=== PATIENT | female | born 1955 | race Caucasian/White ===

== ENCOUNTER 2022-04-07 12:26 | Outpatient (CLI) | payer MEDICARE, OTHER, SELFPAY | END 2022-04-07 12:27 | disposition home or self-care (01) | LOC: OP CLINIC 12:27 | PROVIDERS: PCP Internal Medicine; Visit Provider Internal Medicine | DX: R19.8 Other specified symptoms and signs involving the digestive system and abdomen (principal); K29.70 Gastritis, unspecified, without bleeding; K25.9 Gastric ulcer, unspecified as acute or chronic, without hemorrhage or perforation | CPT/HCPCS: 43239; 88305; 88342; J2250; J3010 ==

== ENCOUNTER 2022-07-18 14:49 | Outpatient (CLI) | payer MEDICARE, OTHER, SELFPAY ==
--- OUTSIDE RECORDS SUMMARY | 2022-07-18 14:59 | XMS_ITS | Clinical Summary ---
:1955 Author Organization [facility] [place] [address] Care Team Providers Name Role Phone Manuel Briceno MD Primary Care Provider Allergies Active Allergy Reactions Severity Noted Date Comments Nickel Other - Describe In 04/22/2020 Nickel u sed in surgery Comment Field caused increas ed pain Medications Medication Sig Dispensed Refills Start Date End Date Status CLARITIN 10 MG TAB take 1 tablet 0 01/14/2007 Active (10mg) by oral route once daily cholecalciferol (VITAMIN Take 1,000 0 Active D3) 1,000 unit capsule Units by mouth. LORazepam (ATIVAN) 0.5 0 12/25/2019 Active mg tab triamcinolone 0.1% 0 10/27/2019 Active (KENALOG IN ORABASE) 0.1 % paste chlorthalidone Twice A Day 0 Act chantal (HYGROTON) 25 mg tablet omeprazole (PRILOSEC) 40 Twice A Day 0 Active mg Delayed-Release capsule polyethylene glycoL Take 17 g by 0 04/22/2020 Active (MIRALAX) 17 gram/dose mouth. powder calcium-vitamin Take by mouth. 0 04/22/2020 Active D3-vitamin K 500 mg-1,000 unit-40 mcg chew tamsulosin (FLOMAX) 0.4 TAKE ONE 90 Capsule 0 05/30/2022 Active mg capsuleIndications: CAPSULE BY Kidney stones MOUTH ONCE DAILY AFTER A MEAL Active Problems Problem Noted Date Chronic rhinitis Hypopotassemia Esophageal reflux Dizziness and giddiness Encounters Date Type Specialty Care Team Description 05/26/2022 Refill Vincenzo Guallpa MD Refi ll Request (Tamsulosin) from Last 3 Months Immunizations Name Administration Dates Next Due Influenza, IIV3 (Age >=3 years) 08/08/2006 Td (Age >=7 Years) 03/31/2005 Family History Medical History Relation Name Comments Alcohol/Drug Brother 3 Alcohol/Drug Brother 4 Hypertension Brother 5 Hypertension Brother 6 Hypertension Brother 7 Heart Disease Father Hypertension Father Hypertension Mother Osteoporosis Mother Cancer-breast Sister 2 Relation Name Status Comments Brother 1 Alive 3 Brother 2 Brother 3 Brother 4 Brother 5 Brother 6 Brother 7 Daughter Alive Father Maternal Grandfather Maternal Grandmother Mother Alive Paternal Grandfather Paternal Grandmother Sister 1 Alive 1 Sister 2 Son Alive Social History Tobacco Use Types Packs/Day Years Used Date Never Smoker Smokeless Tobacco: Never Used Tobacco Cessation: Counseling Given: Yes Alcohol Use Standard Drinks/Week Comments No 0 (1 standard drink = 0.6 oz pure alcoho l) Sex Assigned at Date Recorded Not on file Obstetrics History Para Term AB IAB SAB Ectopic Multiple Living Live Births 4 2 2 2 2 Date Outcome GA Total Labor/2nd/3rd Weight Sex Delivery Anes PTL Arminda A 1 A5 Name Clin Labor Term Term 08/20 38w 3.01 kg F Vag Celia /1988 0d (6 lb ng 10 oz) 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 38w0d 3.23 kg (7 lb 2 oz) M Vag Living Last Filed Vital Signs Vital Sign Reading Time Taken Comments Blood Pressure 103/70 09/12/2021 9:07 AM ICE GUARD INSPECTOR Pulse 74 09/12/2021 9:07 AM ICE GUARD INSPECTOR Temperature 36.7 ??C (98.1 ??F) 09/15/2020 3:28 PM ICE GUARD INSPECTOR Respiratory Rate 16 09/12/2021 9:07 AM ICE GUARD INSPECTOR Oxygen Saturation 96% 09/12/2021 9:07 AM ICE GUARD INSPECTOR Inhaled Oxygen Concentration - - Weight 68 kg (150 lb) 09/12/2021 9:07 AM ICE GUARD INSPECTOR Height 160.4 cm (5' 3.15) 09/15/2020 3:28 PM ICE GUARD INSPECTOR Body Mass Index 26.45 09/15/2020 3:28 PM ICE GUARD INSPECTOR Plan of Treatment Upcoming Encounters Date Type Specialty Care Team Description 09/07/2022 Ancillary Procedure Health Maintenance Due Date Last Done Comments Tdap 1967 Depression screening for age 12+ 1968 Hepatitis C screening for age 1108/14/1974 18-79 Colonoscopy through age 75 2001 Zoster (shingles) series for age 1108/14/2006 50+ (1 of 2) Mammogram for age 45-75 02/23/2011 02/23/2010, 02/17/2009, 02/12/2008, Additional history exists Lipids for age 45-75 02/08/2012 02/07/2007, 01/24/2007 Tetanus booster 03/31/2015 03/31/2005 DEXA/DXA scan for age 65+ 2021 Medicare Wellness for age 65+ 2021 Pneumococcal series for age 65+ (1 2021 - PCV) BMI (ht and wt on same day) for 09/15/2021 09/15/2020, 05/09, age 18+ 05/10/2020, Additional history exists COVID-19 vaccine series (3 - 02/03/2022 09/05/2021, 021 Booster for Moderna series) Influenza for age 65+ 06/08/2022 08/08/2006 Pap test for age 21-65 07/04/2024 07/04/2021, 02/23/2010, 02/17/2009, Additional history exists Results Not on filefrom Last 3 Months Insurance Payer Benefit Plan / Subscriber ID Effective Dates Phone Addre ss Type Group MEDICARE PART A MEDICARE PART A [id number] 2021-Presen ATTN: CLAIMS - HB USE ONLY HB ONLY t [address] [facility] [place] [address] MEDICARE PART B MEDICARE PART B [id number] 2021-Presen ATTN: CLAIMS - HB USE ONLY HB ONLY t [address] [facility] [place] [address] MEDICARE - PB MEDICARE PB [id number] 2021-Presen ATT N: CLAIMS USE ONLY ONLY t [address] [facility] [place] [address] FOR [id number] 2021-Present [address] [place] [address] (Home) [place] [address] Advance Directives Latest Code Status on File Code Status Date Activated Date Inactivated Comments Full Code 03/06/2007 11:49 AM 03/07/2007 2:08 AM Care Teams Patient Financial Representative Relationship Specialty Start Date End Date Manuel Briceno MD PCP - General 12/07/09
--- OUTSIDE RECORDS SUMMARY | 2022-07-18 14:59 | XMS_ITS ---
:1955 Author Allergies Code Code System Name Reaction Severity Status Onset Hayfever ? ? Active ? Ragweed ? ? Active ? Medications None recorded. Problems None recorded. Procedures Date Name Performed by ? 11/08/2014 Parathyroidectomy Information not avai lable Notes: *Surgery Date: 11/08/2014 ? Removal of Gallbladder Information not a vailable ? Laparoscopy Information not avai lable ? Laparotomy Information not avai lable Notes: *Surgery Date: 1983 ? Operative Procedure on Forearm Informati on not available Notes: *Surgery Date: , ? Tonsillectomy Information not avai lable Notes: *Surgery Date: 06/01/2020 US, Pelvis, Transabdominal + Transvagina l [employer] [place] [phone] ([address]) 06/01/2020 US, Pelvis, Transabdominal + Transvagina l [employer] [place] [phone] (Work [address]) Notes: *Procedure Name: arm fracture *Procedure Name: Leg fracture Results Lab Results None recorded. Past Encounters None recorded. Social History Tobacco Smoking Status Never Smoker Notes: Tobacco *Status: Never Vaccine List None recorded. Plan of Care Reminders Provider Appointments None recorded. ? ? Lab None recorded. ? ? Referral None recorded. ? ? Procedures None recorded. ? ? Surgeries None recorded. ? ? Imaging None recorded. ? ? Vitals 04/03/2019 Height Weight BMI Blood Pressure 5 ft 3.96 in 144 lbs 24.72 kg/m2 118/78 mm[Hg] 04/01/2018 Height Weight BMI Blood Pressure 5 ft 3.96 in 181 lbs 31.07 kg/m2 104/72 mm[Hg] 03/29/2017 Height Weight BMI Blood Pressure 5 ft 3.96 in 178 lbs 30.55 kg/m2 96/70 mm[Hg] 06/19/2016 Height Weight BMI Blood Pressure 5 ft 3.96 in 180 lbs 30.90 kg/m2 94/70 mm[Hg] 05/29/2016 Height Weight BMI Blood Pressure 5 ft 3.96 in 178 lbs 30.55 kg/m2 104/82 mm[Hg] 05/27/2015 Height Weight BMI Blood Pressure 5 ft 3.96 in 172 lbs 29.52 kg/m2 118/72 mm[Hg] 05/21/2014 Height Weight BMI Blood Pressure 5 ft 3.96 in 189 lbs 32.44 kg/m2 118/72 mm[Hg] 06/19/2013 Weight Blood Pressure 180 lbs 122/70 mm[Hg] 05/22/2013 Height Weight BMI Blood Pressure 5 ft 5.04 in 180 lbs 29.95 kg/m2 116/70 mm[Hg] 04/24/2013 Height Weight BMI Blood Pressure 5 ft 5.04 in 181 lbs 30.12 kg/m2 122/72 mm[Hg] 05/16/2012 Height Weight BMI Blood Pressure 5 ft 5.04 in 179 lbs 29.79 kg/m2 100/80 mm[Hg] 04/22/2012 Height Weight BMI Blood Pressure 5 ft 5.04 in 183 lbs 30.45 kg/m2 122/74 mm[Hg] 03/23/2011 Height Weight BMI Blood Pressure 5 ft 5.04 in 177.31 lbs 29.51 kg/m2 122/76 mm[Hg] 03/31/2010 Height Weight BMI Blood Pressure 5 ft 5.04 in 173 lbs 28.79 kg/m2 94/68 mm[Hg] 03/24/2010 Height Weight BMI Blood Pressure 5 ft 5.04 in 172 lbs 28.62 kg/m2 110/80 mm[Hg]
--- NOTE | 2022-07-18 15:00 | CRLHL7_ITS ---
For Patients: As a result of the Cures Act, medical imaging exams and procedure reports are released immediately into your electronic medical record. You may view this report before your referring provider. If you have questions, please contact your health care provider. BILATERAL SCREENING MAMMOGRAM WITH COMPUTER-AIDED DETECTION AND TOMOSYNTHESIS TECHNIQUE: CC and MLO views were obtained. These mammographic images have been obtained using full-field digital technique. These mammographic images were interpreted with the benefit of computer-aided detection. Breast Tomosynthesis was used in this interpretation. COMPARISON FILM: 07/05/21, 07/02/20, 07/01/19. FINDINGS: There are scattered areas of fibroglandular density IMPRESSION: There is no radiographic evidence for malignancy. ASSESSMENT: BI-RADS Category 1: Negative RECOMMENDATION: Routine screening mammogram in 1 year. A lay language report of this examination will be provided to the patient. Zhou Lauren M.D. Diagnostic Radiologist [email or web address] JAMARI/canelo / be/Dictated by: Zhou Lauren MD @ 07/19/2022 11:53:00 AM (Electronically Signed)
== END 2022-07-18 14:50 | disposition home or self-care (01) ==
PROVIDERS: PCP Internal Medicine; Visit Provider Internal Medicine
DX: Z12.31 Encounter for screening mammogram for malignant neoplasm of breast (principal)
CPT/HCPCS: 77063; 77067

== ENCOUNTER 2022-07-27 13:08 | Outpatient (CLI) | payer MEDICARE, OTHER, SELFPAY ==
[2022-07-27 17:15] LABS: Albumin* 4.3 g/dL (3.3-5.0)
[2022-07-27 17:16] LABS: Chloride* 102 mmol/L (96-114); Potassium* 3.9 mmol/L (3.6-5.1); Sodium* 137 mmol/L (135-149)
[2022-07-27 17:18] LABS: Blood Urea Nitrogen* 22 mg/dL (7-30); Carbon Dioxide* 28 mmol/L (20-32); Cholesterol* 212 mg/dL (90-199); Creatinine* 0.6 mg/dL (0.5-1.5); Estimated Glomerular Filt Rate 100 ml/min; Total Protein* 6.6 g/dL (6.0-8.3)
[2022-07-27 17:19] LABS: Alanine Aminotransferase* 24 U/L (4-35); Alkaline Phosphatase* 65 U/L (40-150); Aspartate Amino Transferase* 38 U/L (12-35); Calcium* 9.8 mg/dL (8.4-10.6); Glucose* 95 mg/dL (60-115); Triglycerides* 88 mg/dL (40-149)
[2022-07-27 17:20] LABS: HDL Cholesterol* 81 mg/dL (>=50); LDL Cholesterol Calculated 113 mg/dL (<100)
== END 2022-07-27 13:09 | disposition home or self-care (01) ==
PROVIDERS: PCP Internal Medicine; Visit Provider Internal Medicine
DX: Z01.419 Encounter for gynecological examination (general) (routine) without abnormal findings (principal); E21.3 Hyperparathyroidism, unspecified; E83.51 Hypocalcemia; E87.6 Hypokalemia; F41.9 Anxiety disorder, unspecified; Z13.6 Encounter for screening for cardiovascular disorders
CPT/HCPCS: 80053; 80061

== ENCOUNTER 2022-09-22 15:51 | Outpatient (CLI) | payer MEDICARE, OTHER, SELFPAY ==
--- NOTE | 2022-09-22 16:00 | CRLHL7_ITS ---
For Patients: As a result of the Century Cures Act, medical imaging exams and procedure reports are released immediately into your electronic medical record. You may view this report before your referring provider. If you have questions, please contact your health care provider. INDICATION: Left ovarian cyst on outside CT scan TECHNIQUE: Ultrasound pelvis transabdominal and transvaginal for better assessment or to better visualize the endometrium. Real time sonographic images with Spectral and color Doppler imaging of the ovaries were obtained. COMPARISON: None FINDINGS: Uterus: 0.9 centimeter x 1.5 centimeter x 3.6 centimeter. Normal echotexture of the myometrium. No masses. Endometrium: Transvaginal imaging was performed to better evaluate the endometrium. 2.1 millimeter in thickness. There is fluid in the endometrial canal. Right ovary: Not visualized. Left ovary: 4.3 centimeter x 3.0 centimeter x 3.2 centimeter. No ovarian or adnexal masses. 3.4 centimeter left ovarian cyst normal arterial and venous blood flow. Cul-de-sac: No significant free fluid. IMPRESSION: 3.4 centimeter left ovarian cyst. Trace fluid in the endometrial canal. Dictated by Zhou Winn MD @ 09/22/2022 4:49:05 PM (Electronically Signed)
== END 2022-09-22 15:52 | disposition home or self-care (01) ==
LOC: US 15:53
PROVIDERS: PCP Internal Medicine; Visit Provider Obstetrics & Gynecology
DX: N83.202 Unspecified ovarian cyst, left side (principal)
CPT/HCPCS: 76830; 76856

== ENCOUNTER 2022-09-25 13:52 | Outpatient (CLI) | payer MEDICARE, OTHER, SELFPAY ==
[2022-09-28 19:03] LABS: Cancer Antigen 125 17 U/mL (<=38)
== END 2022-09-25 13:53 | disposition home or self-care (01) ==
LOC: NFLDREF 13:59
PROVIDERS: PCP Internal Medicine; Visit Provider Obstetrics & Gynecology
DX: D48.9 Neoplasm of uncertain behavior, unspecified (principal); N83.209 Unspecified ovarian cyst, unspecified side; Z78.0 Asymptomatic menopausal state
CPT/HCPCS: 86304

== ENCOUNTER 2023-03-21 11:07 | Outpatient (CLI) | payer MEDICARE, OTHER, SELFPAY ==
--- NOTE | 2023-03-21 11:00 | CRLHL7_ITS ---
For Patients: As a result of the Century Cures Act, medical imaging exams and procedure reports are released immediately into your electronic medical record. You may view this report before your referring provider. If you have questions, please contact your health care provider. CLINICAL HISTORY: LT OVARIAN CYST, PAIN TECHNIQUE: 2D davison scale ultrasound. In addition color Doppler and spectral Doppler analysis was performed of the pelvis using a transabdominal and transvaginal approach. Comparison 09/22/2022 FINDINGS: On transvaginal imaging, the myometrium has a normal uniform echotexture. The uterus measures 5.0 x 2.0 x 3.9 cm. The endometrial lining measures 1 mm in thickness. The right ovary measures 1.7 x 0.9 x 1.1 cm in size and the left ovary measures 3.8 x 3.1 x 3.2 cm. A simple anechoic left ovarian cyst is noted measuring 2.6 x 2.3 x 2.4 cm. The ovaries demonstrate normal arterial and venous blood flow on color Doppler and spectral Doppler analysis. There are no suspicious fluid collections within the cul-de-sac. IMPRESSION: 2.6 cm simple left ovarian cyst. Previously this measured 3.4 cm. No torsion or pelvic free fluid. Dictated by Zhou Lauren MD @ 03/21/2023 12:36:29 PM (Electronically Signed)
== END 2023-03-21 11:08 | disposition home or self-care (01) ==
PROVIDERS: PCP Internal Medicine; Visit Provider Obstetrics & Gynecology
DX: N83.292 Other ovarian cyst, left side (principal); R10.2 Pelvic and perineal pain
CPT/HCPCS: 76830; 76856; 93976

== ENCOUNTER 2023-08-28 17:03 | Outpatient (CLI) | payer MEDICARE, OTHER, SELFPAY ==
--- OUTSIDE RECORDS SUMMARY | 2023-08-28 17:05 | XMS_ITS | Continuity of Care Document ---
Author Name Unknown Organization [facility] Address [address] [address] [place] [address] Phone Care Team Providers Care Fruit Or Nut Crops Farm Manager Name Role Phone Unavailable Unavailable Unavailable Allergies, Adverse Reactions, Alerts Substance Reaction Status Criticality nickel Active No Information Medications Medication Instructions Dosage Effective Dates (start - stop) Status Comments omeprazole 40 mg capsule,delayed release take 1 capsule by oral route 2 times every day before a meal 40 MG - Active aspirin 81 mg tablet,delayed release take 1 tablet by oral route every day 81 MG - Active Vitamin D3 1,000 unit capsule take 1 Tablet by Oral route every day 1 Tablet - Active Miralax 17 gram/dose oral powder take (17G) by oral route every day mixed with 8 oz. water, juice, soda, coffee or tea - Active UMANG ALLERGY (unknown strength) take 1 tablet by oral route every day Not Available - Active CALCIUM (unknown strength) take 1 Tablet by Oral route every day Not Available - Active Procedures Procedure Date CRS Charges Advance Directives Directive Yes / No Effective Date File Name No Information Encounters Encounter Description Practice Location Reason(s) For Visit Diagnoses Date Provider Providers Copied on Encounter [facility], [address] [address], [place], [id number], [place] tel:[phone] Miguel A [facility] Screening ColonoscopyEncou nter for screening for malignant neoplasm of colon 7 No Information Referring Provider: Referral Self, USE FOR SELF REFERRALS. Family History Family Member Type Diagnosis Age At Onset Sister Problem (finding) Alive and well Father Problem (finding) Son Problem (finding) Alive and well Brother Problem (finding) alcoholism Daughter Problem (finding) Alive and well Mother Problem (finding) Payers Payer name Insurance type Covered constitution party ID Kelsy hull(s) [employer] CI [id number] Social History Type Description Quantity Date Captured Comments Alcohol Use Details Unknown Caffeine Use Details Unknown Tobacco Use Status No Information Smoking Status Never smoker Sex Female Vital Signs Date / Time: Height Weight BMI Pulse Rate Blood Pressure Temperature Respiratory Rate Body Surface Area Head Circumference Head Circ. Percentile Wt./Solitario. Percentile BMI percentile Pulse Ox Inhaled Ox 65.00 in 76.190 kg (168.00 lbs) 28.0 0 kg/m eter (2) 64 /min 108/76 mm[Hg] 0.00 F 16 /min 98 % Chief Complaint And Reason For Visit No Information Reason For Referral Reason For Referral No Information History Of Present Illness Encounter Date Complaint History Of Prese nt Illness No Information Functional Status Date Functional Assessmen t No Information Instructions Date Instruction Additional Infor dwaine Colon Cancer Prevention Related to Screening Colonoscopy Assessments Type Assessment Date assessment Screening Colonoscopy 7 Patient Care Teams Name Effective Dates (start - stop) Status Members No Information
--- OUTSIDE RECORDS SUMMARY | 2023-08-28 17:05 | XMS_ITS | Continuity of Care Document ---
Author Name Unknown Organization [facility] Address [address] [place] [address] Phone Care Team Providers Care Psychiatric Specialist Name Role Phone Renuka Londono CNP Unavailable Unavailable Allergies, Adverse Reactions, Alerts Substance Reaction Status Criticality No Known Drug Allergies Active No I nformation Medications Medication Instructions Dosage Effective Dates (start - stop) Status Comments omeprazole 40 mg capsule,delayed release take 1 capsule by oral route 2 times every day before a meal 40 MG - Active alendronate 70 mg tablet take 1 tablet by oral route every week in the morning, at least 30 min before first food, beverage, or medication of day 70 MG - Active aspirin 81 mg chewable tablet chew 1 tablet by oral route every day 81 MG - Active Citracal + D Slow Release 600 mg calcium-500 unit tablet,ext.release - Active Vitamin C 500 mg tablet - Active Aarti 180 mg tablet take 1 tablet by oral route every day - No Longer Active Procedures Procedure Date Est Pt Eval 25 Min Est Pt Eval 15 Min Injections Ligament OP Consult 60 Min Advance Directives Directive Yes / No Effective Date File Name No Information Encounters Encounter Description Practice Location Reason(s) For Visit Diagnoses Date Provider Providers Copied on Encounter Est Pt Eval 25 Min [facility], [address], [place], [place], [id number], tel:[phone] [facility] No Information 0-201 4 Bry Grayson. [address], [place], [place], [id number], [place]. tel:[phone] Referring Provider: Alex Angel, [address], [place], [address]. tel:[phone] [facility], [address], [place], [address], [place] tel:[phone] [facility] No Information Jun- 4 Jesus Dumas. [address] [place], [facility], [place], [address]. tel:[phone] Referring Provider: Piter Grossman, [address] [place] [facility], [place], [address]. tel:[phone] [facility], [facility], [address], [place], [place], [id number], [place] tel:[phone] [facility] No Information 4 Jesus Dumas. [address] [place], [facility], [place], [address]. tel:[phone] Referring Provider: Alex Angel, [address], [place], [address]. tel:[phone] OP Consult 60 Min [facility], [facility], [address], [place], [place], [id number], [place] tel:[phone] [facility] No Information 4 Jose Emerson. [address], [place], [place], [id number], [place]. tel:[phone] Referring Provider: Alex Angel, [address], [place], [address]. tel:[phone] Family History Family Member Type Diagnosis Age At Onset No Information Payers Payer name Insurance type Covered republican ID Kelsy hull(s) No Information Social History Type Description Quantity Date Captured Comments Alcohol Use Details No Caffeine Use Details No Tobacco Use Status No Information Smoking Status No Information Sex Female Vital Signs Date / Time: Height Weight BMI Pulse Rate Blood Pressure Temperature Respiratory Rate Body Surface Area Head Circumference Head Circ. Percentile Wt./Solitario. Percentile BMI percentile Pulse Ox Inhaled Ox 3:50 PM 65.00 in 192.00 lbs 31.9 5 kg/m eter (2) 69 /min 119/78 mm[Hg] 15 /min 98 % Chief Complaint And Reason For Visit No Information Reason For Referral Reason For Referral No Information History Of Present Illness Encounter Date Complaint History Of Prese nt Illness No Information Functional Status Date Functional Assessmen t Pain Score 7/10 Instructions Date Instruction Additional Infor mation No Information Assessments Type Assessment Date No Information Patient Care Teams Name Effective Dates (start - stop) Status Members No Information
--- NOTE | 2023-08-28 17:20 | CRLHL7_ITS ---
For Patients: As a result of the Century Cures Act, medical imaging exams and procedure reports are released immediately into your electronic medical record. You may view this report before your referring provider. If you have questions, please contact your health care provider. BILATERAL SCREENING MAMMOGRAM WITH COMPUTER-AIDED DETECTION AND TOMOSYNTHESIS TECHNIQUE: CC and MLO views were obtained. These mammographic images have been obtained using full-field digital technique. These mammographic images were interpreted with the benefit of computer-aided detection. Breast Tomosynthesis was used in this interpretation. COMPARISON FILM: 07/18/22, 07/05/21, 07/02/20. FINDINGS: There are scattered areas of fibroglandular density IMPRESSION: There is no radiographic evidence for malignancy. ASSESSMENT: BI-RADS Category 1: Negative RECOMMENDATION: Routine screening mammogram in 1 year. A lay language report of this examination will be provided to the patient. Zhou Lauren M.D. Diagnostic Radiologist [email or web address] [place]/Dictated by: Zhou Lauren MD @ 08/29/2023 1:04:00 PM (Electronically Signed)
== END 2023-08-28 17:04 | disposition home or self-care (01) ==
LOC: MAMMO 17:04
PROVIDERS: PCP Internal Medicine; Visit Provider Internal Medicine
DX: Z12.31 Encounter for screening mammogram for malignant neoplasm of breast (principal)
CPT/HCPCS: 77063; 77067

== ENCOUNTER 2023-09-10 11:41 | Outpatient (CLI) | payer MEDICARE, OTHER, SELFPAY ==
--- OUTSIDE RECORDS SUMMARY | 2023-09-12 09:03 | XMS_ITS | Continuity of Care Document ---
Author Name Unknown Organization [facility] Address [address] [place] [address] Phone Care Team Providers Care Drug Clerk Name Role Phone Renuka Londono CNP Unavailable [...] Pt Eval 25 Min [facility], [address], [place], [place], [id number], tel:[phone] [facility] No Information 0-201 4 Bry Grayson. [address], [place], [place], [id number], [place]. tel:[phone] Referring Provider: Alex Angel, [address], [place], [address]. tel:[phone] [facility], [address], [place], [address], [place] tel:[phone] [facility] [place] No Information Jun- 4 Jesus Dumas. [address] [place], [facility], [place], [address]. tel:[phone] Referring Provider: Piter Grossman, [address] [place] [facility], [place], [address]. tel:[phone] [facility], [facility], [address], [place], [place], [id number], [place] tel:[phone] [facility] [place] No Information 4 Jesus Dumas. [address] [place], [facility], [place], [address]. tel:[phone] Referring Provider: Alex Angel, [address], [place], [address]. tel:[phone] OP Consult 60 Min [facility], [facility], [address], [place], [place], [id number], [place] tel:[phone] [facility] No Information 4 Jose Emerson. [address], [place], [place], [id number], [place]. tel:[phone] Referring Provider: Alex Angel, [address], [place], [address]. tel:[phone] Family History Family Member Type Diagnosis Age At Onset No Information Payers Payer name Insurance type Covered green party ID Kelsy hull(s) No Information Social History [...]
== END 2023-09-10 11:42 | disposition home or self-care (01) ==
LOC: NFLDREF 09-12 09:01
PROVIDERS: PCP Internal Medicine; Referring Provider Internal Medicine; Visit Provider Internal Medicine
DX: Z00.00 Encounter for general adult medical examination without abnormal findings (principal); E21.3 Hyperparathyroidism, unspecified; E87.6 Hypokalemia; K21.9 Gastro-esophageal reflux disease without esophagitis; Z13.6 Encounter for screening for cardiovascular disorders; M81.0 Age-related osteoporosis without current pathological fracture; F41.9 Anxiety disorder, unspecified
CPT/HCPCS: 80053; 80061

== ENCOUNTER 2024-04-24 14:20 | Outpatient (CLI) | payer MEDICARE, OTHER, SELFPAY ==
--- OUTSIDE RECORDS SUMMARY | 2024-04-24 14:28 | XMS_ITS | Clinical Summary ---
Author Organization [facility] Address [address] [place] [address] Care Team Providers Care Carpet Or Rug Layer Helper Name Role Phone Unavailable Primary Care Provider Unavailabl e Source Comments Patient records contain information from all sites at [facility]. For routine questions regarding patient records, call [phone] during business hours, M-F 8:00 AM - 5:00 PM Central Time. Record requests for emergency care only can be directed to [phone] at any time.[facility] Allergies Active Allergy Reactions Criticality Noted Date Comments Nickel Other (see comments) 03/06/2018 Pain Pollen Extracts Other (see comments) 07/15/2021 Ragweed Other (see comments) 07/15/2021 Medications Medication Sig Dispensed Refills Start Date End Date Status polyethylene glycol (MIRALAX) 17 gram powder packet Take 1 g by mouth daily. 17 mg daily. 07/12/2015 Active omeprazole (PriLOSEC) 40 mg capsule Take 1 capsule by mouth 2 (two) times a day. 12/01/2014 Active cholecalciferol, vitamin D3, 25 mcg (1,000 Unit) tablet Take 1 tablet by mouth daily. 07/12/2015 Active chlorthalidone (HYGROTON) 25 mg tablet Take 25 mg by mouth 2 (two) times a day. 05/28/2017 Active loratadine (CLARITIN) 10 mg tablet Take 10 mg by mouth daily. Active LORazepam (ATIVAN) 0.5 mg tablet Take 0.5 mg by mouth as needed for anxiety. 12/25/2019 Active CALCIUM ORAL Take 1,000 mg by mouth daily. Active zoledronic acid/mannitol-water (RECLAST IV) Infuse into a venous catheter as directed. yearly Active prednisoLONE acetate (PRED FORTE) 1 % ophthalmic suspension SHAKE LIQUID AND INSTILL 1 DROP IN BOTH EYES TWICE DAILY FOR 2 WEEKS Active triamcinolone (KENALOG) 0.1 % dental paste See Admin Instructions. Active Active Problems Problem Noted Date Diagnosed Date Hypercalciuria 04/22/2018 Hypokalemia 04/22/2018 Osteoporosis 03/10/2018 Immunizations Name Administration Dates Next Due DT, Pediatric 07/27/1985 HepA / HepB 10/23/2016,09/21/2016 Hib (PRP-OMP) (PedvaxHIB) 02/12/2019 Influenza (IM) Preservative Free 016,07/01/2015,07/09/2013,2011,09/13/2011,06/30/2009 Influenza Split 07/08/2014,07/08/2013 Influenza TIV (IM) 07/24/2012, 0,07/21/2008,2005,08/30/2005 Influenza high dose QV(65 ye ars or older) (PF) 07/14/2022 Influenza, Injectable, Mdck, Quadrivalent 06/30/2021 Influenza, Injectable, Quadrivalent 06/08,07/10/2019,07/04/2018,2014 Influenza, Quadrivalent, Adj uvanted, Preservative Free 06/28/2023 Influenza, Seasonal, Injectable 07/24/20 12,07/27/2010,07/21/2008,2004 Influenza, Unspecified 07/14/2022,08/17/2017 MCV4 (Menveo) 02/12/2019 PPSV23 02/12/2019 Pneumococcal, Unspecified 01/20/2022 RSV: respiratory syncytial v irus (ABRYSVO) bivalent vaccine 06/28/2023 RZV (SHINGRIX) 09/21/2020,07/22/2020 SARS-COV-2 (COVID-19) - MODERNA(Discontinued) 12/01/2020 Td Preservative Free (TENIVA C, DECAVAC) 10/08/2004 Tdap 01/25/2016,06/23/2011 TyVi (inj) 09/21/2016 influenza high dose (65 year s or older) (PF) 07/08/2013 influenza vaccine quad (FLUZONE/FLUARIX) (6 months and older)(PF) 07/20/2017,07/03/2014 Family History Medical History Relation Name Comments Hypertension Brother 1 Elmer Rojo Hypertension Brother 2 H. L. Alia Hypertension Father Lowell Read Alia Osteoporosis Mother Eleanor Rojo Breast cancer Sister Kecia Coronado Relation Name Status Comments Brother 1 Elmer Rojo Brother 2 H. L. Alia Father Lowell Read Alia Mother Eleanor Rojo Sister Kecia Coronado Social History Tobacco Use Types Packs/Day Years Used Date Smoking Tobacco: Never Passive Smoke Exposure: Never Smokeless Tobacco: Never Alcohol Use Standard Drinks/Week Comments No 0 (1 standard drink = 0.6 oz pur e alcohol) Humiliation, Afraid, Rape, and Kick questionnair e Answer Date Recorded Within the last year, have y ou been afraid of your partner or ex-partner? No 08/03/2022 Within the last year, have y ou been humiliated or emotionally abused in other ways by your partner or ex-partner? No Within the last year, have y ou been kicked, hit, slapped, or otherwise physically hurt by your partner or ex-partner? No 08/03/2022 Within the last year, have y ou been raped or forced to have any kind of sexual activity by your partner or ex-partner? No 08/03/2022 Social Connection and Isolat ion Panel [NHANES] Answer Date Recorded In a typical week, how many times do you talk on the phone with family, friends, or neighbors? More than three times a week 08/03/2022 How often do you get togethe r with friends or relatives? Once a week 08/03/2022 How often do you attend chur ch or rastafari services? More than 4 times per year 08/03/2022 Do you belong to any clubs o r organizations such as mandaeism groups, unions, fraternal or athletic groups, or school groups? Yes 08/03/2022 How often do you attend meet ings of the clubs or organizations you belong to? More than 4 times per year 08/03/2022 Are you , , di vorced, , never , or living with a partner? 08/03/2022 AUDIT-C Answer Date Recorded Q1: How often do you have a drink containing alc ohol? Never 08/03/2022 Average Number of Drinks Not on file 022 Frequency of Binge Drinking Not on file 07/09 Overall Financial Resource Strain (CARDIA) Answe r Date Recorded How hard is it for you to pa y for the very basics like food, housing, medical care, and heating? Not hard at all 08/03/2022 [facility] - Occupational Stress Questionnaire Answer Date Recorded Do you feel stress - tense, restless, nervous, or anxious, or unable to sleep at night because your mind is troubled all the time - these days? Only a little 08/03/2022 Exercise Vital Sign Answer Date Recorde d On average, how many days pe r week do you engage in moderate to strenuous exercise (like a brisk walk)? 7 days 08/03/2022 On average, how many minutes do you engage in exercise at this level? 60 min 08/03/2022 Hunger Vital Sign Answer Date Recorded Within the past 12 months, y ou worried that your food would run out before you got the money to buy more. Never true 08/03/20 22 Within the past 12 months, t he food you bought just didn't last and you didn't have money to get more. Never true 08/03/2022 PRAPARE - Transportation Answer Date Re corded In the past 12 months, has l ack of transportation kept you from medical appointments or from getting medications? No 07/09 In the past 12 months, has l ack of transportation kept you from meetings, work, or from getting things needed for daily living? No 08/03/2022 Housing Stability Vital Sign Answer Tal e Recorded In the last 12 months, was t here a time when you were not able to pay the mortgage or rent on time? No 08/03/2022 In the last 12 months, how many places have you lived? 1 08/03/2022 In the last 12 months, was t here a time when you did not have a steady place to sleep or slept in a prison (including now)? No 08/03/2022 Nutrition Answer Date Recorded Nutrition: EVOO Fat Source No 08/03 On average, how many serving s of fruits and vegetables do you eat per day (serving size is equal to 1 cup or approximately the size of a tennis ball)? 4-5 08/03/2022 Dental Answer Date Recorded Dental: Regular Dentist Yes 08/03/20 Employment Answer Date Recorded Employment status Retired 08/03/2022 Education Answer Date Recorded What is the highest level of school you have completed or the highest degree you have received? Doctorate 04/24/2019 Sex and Gender Information Value Date Recorded Sex Assigned at Female 04/16/2018 6:21 PM CDT Gender Identity Female 04/16/2018 6:21 PM CDT Sexual Orientation Straight 04/16/2018 6: 21 PM CDT Last Filed Vital Signs Vital Sign Reading Time Taken Comments Blood Pressure 134/66 08/10/2023 11:39 AM CDT Pulse 67 08/10/2023 11:39 AM CDT Temperature 36.4 ??C (97.5 ??F) 08/10/2023 11:39 AM C DT Respiratory Rate 18 08/10/2023 11:39 AM CDT Oxygen Saturation - - Inhaled Oxygen Concentration - - Weight 71.9 kg (158 lb 8.2 oz) 07/20/2023 2:57 P M CDT Height 159.8 cm (5' 2.91) 07/20/2023 2:57 PM CD T Body Mass Index 28.16 07/20/2023 2:57 PM CDT Plan of Treatment Health Maintenance Due Date Last Done Comments CT Colonography 1955 Cologuard 1955 FIT 1955 Fasting Glucose for Diabetes Screening 1955 Hepatitis C Screening 1955 Hepatitis A Vaccines (3 of 3 - Hep A risk 3-dose series) 03/23/2017 10/23/2016, 09/21/2016 Mammogram 10/09/2017 10/09/2016 (Perf ormed elsewhere), 05/26/2015 (Performed elsewhere), 05/06/2013 (Performed elsewhere) Pneumococcal vaccine (65+ ye ars) (2 of 2 - PCV) 01/20/2023 01/20/2022, 02/12/2019 Colonoscopy 07/08/2023 07/08/2013 (Perf ormed elsewhere), 12/06/2006 (Performed elsewhere) Colorectal Cancer Screening 07/08/2023 Depression Screening (Annual PHQ-2) 10/08/2023 Fall Risk Screen (Annual) 10/08/2023 COVID-19 Vaccine (7 - 2022-2 4 season) 2023 07/02/2023, 07/14/2022, 01/20/2022, Additional history exists Influenza Vaccine (#1) 2024 3, 07/14/2022, 07/14/2022, Additional history exists DTaP,Tdap,and Td Vaccines (5 - Td or Tdap) 01/24/2026 01/25/2016, 06/23/2011, 10/08/2004, Additional history exists Cervical Cancer Screening Discontinued 2016 (Performed elsewhere), 04/07/2013 (Performed elsewhere) Zoster Vaccines Completed 09/21/2020, 07/22/2020 RSV vaccine - (32-3 6 weeks) or 60+ years Completed 06/28/2023 Advance Directives For more information, please contact: [phone] Documents on File Type Date Recorded Patient Shoe Reconditioner Expl anation Advance Directives 11/09/2014 12:00 AM Lega cy document. See document viewer.
--- OUTSIDE RECORDS SUMMARY | 2024-04-24 14:28 | XMS_ITS | Clinical Summary ---
Author Organization [facility] Address [place], [place] [address] Care Team Providers Care Toy Designer Name Role Phone Manuel Briceno MD Primary Care Provider [phone] Allergies Active Allergy Reactions Criticality Noted Date Comments Nickel Other - Describe In Comment Field 04/22/2020 Nickel used in surgery caused increased pain Medications Medication Sig Dispensed Refills Start Date End Date Status CLARITIN 10 MG TAB take 1 tablet (10mg) by oral route once daily 0 01/14/2007 Active cholecalciferol (VITAMIN D3) 1,000 unit capsule Take 1,000 Units by mouth. Active LORazepam (ATIVAN) 0.5 mg tab 12/25/2019 Active triamcinolone 0.1% (KENALOG IN ORABASE) 0.1 % paste 10/27/2019 Active chlorthalidone (HYGROTON) 25 mg tablet Twice A Day Active omeprazole (PRILOSEC) 40 mg Delayed-Release capsule Twice A Day Active polyethylene glycoL (MIRALAX) 17 gram/dose powder Take 17 g by mouth. 0 04/22/2020 Active calcium-vitamin D3-vitamin K 500 mg-1,000 unit-40 mcg chew Take by mouth. 0 04/22/2020 Active tamsulosin (FLOMAX) 0.4 mg capsuleIndications :Kidney stones Take 1 Capsule (0.4 mg) by mouth once daily after a meal. 90 Capsule 09/07/2022 Active zoledronic acid in mannitol & water (Reclast) 5 mg/100 mL infusion Inject 5 mg intravenous one time. Active Active Problems Problem Noted Date Diagnosed Date Chronic rhinitis Hypopotassemia Esophageal reflux Dizziness and giddiness Immunizations Name Administration Dates Next Due Influenza, [...] Packs/Day Years Used Date Smoking Tobacco: Never Smokeless Tobacco: Never Tobacco Cessation:Counseling Given: Yes Alcohol Use Standard Drinks/Week Comments No 0 (1 standard drink = 0.6 oz pur e alcohol) Social Connections Answer Date Recorded Frequency of Communication with Friends and Fami ly Not on file 10/08/2021 Financial Resource Strain Answer Date R ecorded Difficulty of Paying Living Expenses Not on file 10/08/2021 Difficulty of Paying Living Expenses Not on file 10/08/2021 Sex and Gender Information Value Date Recorded Sex Assigned at Not on file Gender Identity Not on file Sexual Orientation Not on file Obstetrics History Para Term AB IAB SAB Ectopic Multiple Livin g Live Births 4 2 2 2 2 Date Outcome GA Total Labor Labor/2nd/3rd Weight Sex Type Anes PTL Arminda A1 A5 Name Clin Term Term 989 38w 0d 3.01 kg (6 lb 10 oz) F Vag Living Comments:Lewis Syndro nd 990 38w 0d 3.23 kg (7 lb 2 oz) M Vag Living Last Filed Vital Signs Vital Sign Reading Time Taken Comments Blood Pressure 103/70 09/12/2021 9:07 AM PUSH BENCH OPERATOR HELPER Pulse 80 12/04/2023 2:58 PM PUSH BENCH OPERATOR HELPER Temperature 36.7 ??C (98.1 ??F) 09/15/2020 3:28 PM CS T Respiratory Rate 16 09/12/2021 9:07 AM PUSH BENCH OPERATOR HELPER Oxygen Saturation 97% 12/04/2023 2:58 PM PUSH BENCH OPERATOR HELPER Inhaled Oxygen Concentration - - Weight 71.3 kg (157 lb 3.2 oz) 12/04/2023 2:58 P M PUSH BENCH OPERATOR HELPER Height 160.4 cm (5' 3.15) 09/15/2020 3:28 PM CS T Body Mass Index 27.71 09/15/2020 3:28 PM PUSH BENCH OPERATOR HELPER Plan of Treatment Health Maintenance Due Date Last Done Comments Tdap 1967 Depression screening for age 12+ 1968 Hepatitis C screening for ag e 18-79 1974 Colonoscopy through age 75 2001 Zoster (shingles) series for age 50+ (1 of 2) 2006 Mammogram for age 45-75 02/23/2011 02/24/20 10, 02/17/2009, 02/12/2008, Additional history exists Lipids for age 45-75 02/08/2012 02/07/2007, 01/25/20 07 Tetanus booster 03/31/2015 03/31/2005 DEXA/DXA scan for age 65+ 2021 Medicare Wellness for age 65+ 2021 Pneumococcal series for age 65+ (1 of 1 - PCV) 2021 BMI (ht and wt on same day) for age 18+ 09/15/2021 09/15/2020, 06/02/2020, 05/10/2020, Additional history exists COVID-19 vaccine series ( season) 2023 07/02/2023, 07/14/2022, 01/20/2022, Additional history exists Influenza for age 65+ 06/08/2024 08/08/2006 Procedures Procedure Name Priority Date/Time Associated Diagnosis Comments XR MAMMO BILAT SCREEN FFDM (IA) Routine 02/23/2010 3:38 PM CDT Other screening mammogram LIPID PANEL Routine 02/07/2007 7:34 AM CDT Routine Gynecological Examination from Last 3 Months or Most Recently Relevant to Health Maintenance Results * XR MAMMO BILAT SCREEN FFDM (02/23/2010 3:38 PM CDT) Anatomical Region Laterality Modality BREASTS, Breast Left, Breast Right Bilateral Mammography Impressions 02/24/2010 9:02 AM CDT ??There is no radiographic evidence for malignancy. ??Recommend annual mammograms. A lay language report of this examination will be provided to the patient. MAMMOGRAM ASSESSMENT: ??ACR 1 Negative Narrative 02/24/2010 9:02 AM CDT XR MAMMO BILAT SCREEN FFDM [G0202.0] CLINICAL HISTORY: ??This is an asymptomatic 54 y.o. patient. INDICATION FOR EXAM: Mammogram Screening. TECHNIQUE: CC & MLO views were obtained. ??This digital study was evaluated with the assistance of Computer-Aided Detection. ?? COMPARISON FILM: Yes 02/17/09 [facility] 02/12/08 [facility] FINDINGS: ??Mammographically, the breast tissue has scattered fibroglandular densities (approximately 25% - 50% glandular). ??There are no dominant masses, suspicious micro calcifications or areas of architectural distortion. Procedure Note Seun Suazo - 02/24/2010 XR MAMMO BILAT SCREEN FFDM [G0202.0] CLINICAL HISTORY: This is an asymptomatic 54 y.o. patient. INDICATION FOR EXAM: Mammogram Screening. TECHNIQUE: CC & MLO views were obtained. This digital study was evaluatedwith the assistance of Computer-Aided Detection. COMPARISON FILM: Yes 02/17/09 [facility] 02/12/08 [facility] FINDINGS: Mammographically, the breast tissue has scatteredfibroglandular densities (approximately 25% - 50% glandular). There areno dominant masses, suspicious micro calcifications or areas ofarchitectural distortion. IMPRESSION: There is no radiographic evidence for malignancy. Recommendannual mammograms. A lay language report of this examination will be provided to the patient. MAMMOGRAM ASSESSMENT: ACR 1 Negative Zeferino Tanner MD MAMMO * LIPID PANEL (02/07/2007 7:34 AM CDT) PATIENT STATUS Fasting [facility] Blood specimen (specimen) BLOOD SPECIMEN / Unknown 02/07/2007 7:34 AM CDT 02/07/2007 7:31 AM CDT Narrative [facility] - 02/07/2007 7:37 AM CDT LIPID Canceled, ordered incorrectly by laboratory. Zeferino Tanner MD CHEMISTRY [facility] [address] [place] [address] from Last 3 Months or Most Recently Relevant to Health Maintenance Advance Directives * Full Code (Latest Code Status on File) Date Activated Date Inactivated Comments 03/06/2007 11:49 AM 03/07/2007 2:08 AM Care Teams Toy Designer Relationship Specialty Start Date End Date Manuel Briceno MD PCP - General 12/07/09
--- OUTSIDE RECORDS SUMMARY | 2024-04-24 14:28 | XMS_ITS | Referral Summary ---
Author Organization [facility] Address [address] [place] [address] Care Team Providers Care Employee Representative Name Role Phone Unavailable Primary Care Provider Unavailabl e Source Comments Patient records contain information from all sites at [facility]. For routine questions regarding patient records, call [phone] during business hours, M-F 8:00 AM - 5:00 PM Central Time. Record requests for emergency care only can be directed to [phone] at any time.[facility] Allergies Active Allergy Reactions Criticality Noted [...] quad (FLUZONE/FLUARIX) (6 months and older)(PF) 07/20/2017,07/03/2014 Social History Tobacco Use Types Packs/Day Years [...] often do you attend chur ch or latter-day services? More than 4 times per year 08/03/2022 Do you belong to any clubs o r organizations such as religious groups, unions, fraternal or athletic groups, or [...] and heating? Not hard at all 08/03/2022 [facility] - Occupational Stress [...] money to buy more. Never true 08/03/20 Within the past 12 months, t he [...] place to sleep or slept in a longterm (including now)? No 08/03/2022 Nutrition Answer Date [...] 07/20/2023 2:57 PM CDT Plan of Treatment Not on file Advance Directives For more information, please contact: [phone] Documents on File Type Date Recorded Patient Data Migration Lead Expl anation Advance Directives 11/09/2014 12:00 AM Sai dent document. See document viewer.
--- OUTSIDE RECORDS SUMMARY | 2024-04-24 14:28 | XMS_ITS ---
Author Organization [facility] Address [address] [place] [address] Care Team Providers Care Solution Design Engineer Name Role Phone Unavailable Unavailable Unavailable Surgery Details Not on file Complications Check Surgery Details section. Procedure Estimated Blood Loss Check Surgery Details section. Procedure Findings Check Surgery Details section. Procedure Specimens Taken Check Surgery Details section.
--- OUTSIDE RECORDS SUMMARY | 2024-04-24 14:28 | XMS_ITS | Continuity of Care Document ---
Author Organization [facility] Address [address] [place] [address] Phone Care Team Providers Care Drywall Metal Stud Worker Name Role Phone Renuka Londono CNP Unavailable [...] Pt Eval 25 Min [facility], [address], [place], [place], [id number], [place] tel:[phone] [facility] No Information 0-201 [address] Bry Grayson. [address], [place], [place], [id number], [place]. tel:[phone] Referring Provider: Alex Angel, [address], [place], [address]. tel:[phone] [facility], [address], [place], [address], [place] tel:[phone] [facility] No Information Jun- 4 Jesus Dumas. [address] [place], [facility], [place], [address]. tel:[phone] Referring Provider: Piter Grossman, [address] [place] [facility], [place], [address]. tel:[phone] Hany, [facility], [address], [place], [place], [id number], [place] tel:[phone] [facility] No Information 4 Jesus Dumas. [address] [place], [facility], [place], [address]. tel:[phone] Referring Provider: Alex Angel, [address], [place], [address]. tel:[phone] OP Consult 60 Min [facility], [facility], [address], [place], [place], [id number], [place] tel:[phone] [facility] No Information 4 Jose Emerson. [address], [address], [place], [place], [id number], [place]. tel:[phone] Referring Provider: Alex Angel, [address], [place], [address]. tel:[phone] Family History Family Member Type Diagnosis Age At Onset No Information Payers Payer name Insurance type Covered alliance party ID Authorvi timarcial(s) No Information Social History Type Description Quantity [...]
== END 2024-04-24 14:21 | disposition home or self-care (01) ==
PROVIDERS: PCP Internal Medicine; Visit Provider Internal Medicine
DX: R53.83 Other fatigue (principal); R22.1 Localized swelling, mass and lump, neck; Z13.228 Encounter for screening for other metabolic disorders; Z13.29 Encounter for screening for other suspected endocrine disorder
CPT/HCPCS: 80053; 82550; 84443

== ENCOUNTER 2024-05-02 13:36 | Outpatient (CLI) | payer MEDICARE, OTHER, SELFPAY ==
--- OUTSIDE RECORDS SUMMARY | 2024-05-02 13:40 | XMS_ITS | Data Portability ---
Author Organization [facility] FLOOR PLAN ADJUSTER, [id number] Address [address] [place] [address] Assessment No assessment recorded. Plan of Treatment Reminders Order Date Submit Date Provider Last Modified By Organization Details Last Modified Time Details Appointments None recorded. Lab None recorded. Referral None recorded. Procedures None recorded. Surgeries None recorded. 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 Patient TargetsNo targets recorded. Patient InstructionsNo instructions recorded. Reason for Referral None Reported. Results Created Date Observation Date Name Description Value Unit Range Abnormal Flag LastModifiedBy Organization Detail LastModifiedTime 06/01/20 20 US, trans vagin al No observ ation record ed. janak Dai [address], [place], [address], 07/15/2020 22:02:40 06/01/20 20 US, pelvi s, trans abdom inal + trans vagin al No observ ation record ed. janak [facility] [employer] [place] [address] [place], [address], 08/04/2020 01:10:23 Result Notes None recorded. Procedures Surgical History Date Name Laterality Status Provider Name and Address Organization Details Recorded Time 015 parathyroidectomy completed Not Available [facility] 05/13/2020 05:12:34 laparoscopy completed Not Available [facility] 05/13/2020 05:12:34 Removal of gallbladder completed Not Available [facility] 05/13/2020 05:12:34 laparotomy completed Not Available [facility] 05/13/2020 05:12:34 operative procedure on forearm completed Not Available [facility] 05/13/2020 05:12:34 tonsillectomy completed Not Available [facility] 05/13/2020 05:12:34 Imaging Results Imaging Date Name Status LastModified by Organization Details LastModified Time 06/01/2020 US, transvaginal completed janak Dai [address], [place], [address], 07/15/2020 22:02:40 06/01/2020 US, pelvis, transabdominal + transvaginal completed janak [facility] [employer] [place] [address], [place], [address], 08/04/2020 01:10:23 Procedure Notes None recorded. Medical Equipment None Reported. Allergies Allergen ID Allergen Name Allergen Category Reaction Reaction Severity Criticality Documentation Date Start Date Code Code System Note Provider Name and Address Organization Details Recorded Time 22993 Hayfever medicatio n Not available Not available Not available 05/13/2020 Not Available [facility] 0 05:08:48 40724 ALLERGENI C EXTRACT, RAGWEED STOCK POLLEN medicatio n Not available Not available Not available 05/13/2020 00869 4 RxNorm Not Available [facility] 0 05:08:48 Vitals None Recorded Social History Question Answer Notes LastModified by Organizat ion Details LastModified Time Tobacco Smoking Status Never Smoker Tobacco *Status: Never Not Available [facility] 05/17/2020 10:04:23 Do You Have An Advance Directive? Yes Does Have A Health Care Directive Information not available 05/17/2020 What Is Your Level Of Caffeine Consumption? Moderate Caffeine *Status: Current Every Day Information not available 05/17/2020 History Of Domestic Violence No Denies Any History Of Domestic Violence [email or web address] Information not available 05/17/2020 Marital [place] [address] Information not available 05/17/2020 Performs Monthly Self-breast Exam? Yes Does Perform Monthly Breast Exams [place] [address] Information not available 05/17/2020 Are You Sexually Active? Yes Currently Sexually Active [place] [address] Information not available 05/17/2020 Sex: Unknown Functional Status Question Answer Note LastModified by Organizat ion Details LastModified Time What is your exercise level? Occasional Active but no formal exercise [place] [address] Information not available 05/17/2020 Mental Status None recorded. Family History Relationship Description Onset Age of this Age Resolved Age Notes Brother Family history of Cardiovascular disease Family History o f Hypertension Sister Family history of breast cancer 42 Family History o f Cancer; Breast Sister Family history of osteoporosis Family History o f Osteoporosis Father Family history of Cardiovascular disease Family History o f Hypertension Mother Family history of Cardiovascular disease Family History o f Hypertension Mother Family history of osteoporosis Family History o f Osteoporosis Medical History Condition Response Endocrinology- Osteoporosis Urology- Kidney or Bladder Problems GI- Reflux/Ulcers Gynecological HistoryNo gynecological history recorded. Obstetrics History GPAL:G 2 P 2 0 0 2 Type Value Multiple Births 0 Full Term 2 Induced 0 Spontaneous 0 Premature 0 Living 2 Ectopics 0 Total 2 Past Encounters Encounter ID Performer Location Encounter Start Date Encounter Closed Date Diagnosis/Indication Diagnosis SNOMED-CT Code [id number] GUANAKO HUNTLEY MD [id number] [address] [address] 06/01/2020 15:48:52 06/01/2020 17:33:47 Pain in pelvis [id number] Health Concerns Section Related Observation LastModified by Organization Detai ls LastModified Time None Recorded Concern Status LastModified by Organization Details LastModified Time None Recorded Advance Directives Directive Y: Does have a Health Care D irective Payers Encounter Date Sequence Insurance Name Policy Number Policy Olson Covered Member ID Olson Member ID Guarantor Name 06/01/2020 1 [employer] [id number] Cleopatra Parrish [id number] Cleopatra Parrish OBGyn Episode No OBEpisode recorded.
--- OUTSIDE RECORDS SUMMARY | 2024-05-02 13:40 | XMS_ITS | Continuity of Care Document ---
Author Organization [facility] Address [address] [address] [place] [address] Phone Care Team Providers Care Trousseau Consultant Name Role Phone Unavailable Unavailable Unavailable Allergies, [...] Diagnoses Date Provider Providers Copied on Encounter [facility], [address] [address], [place], [id number], [place] tel:[phone] Miguel [address] [facility] Screening ColonoscopyEncou nter for screening [...] (finding) Payers Payer name Insurance type Covered democrat ID Kelsy hull(s) [employer] CI [id number] Social History Type Description Quantity Date Captured [...] t No Information Instructions Date Instruction Additional Dior dwaine Colon Cancer Prevention Related to Screening Colonoscopy Assessments Type Assessment Date assessment Screening Colonoscopy 7 Patient Care Teams Name Effective Dates (start - stop) Status Members No Information
--- OUTSIDE RECORDS SUMMARY | 2024-05-02 13:40 | XMS_ITS | Clinical Summary ---
Author Organization [facility] Address [address] [place] [address] Care Team Providers Care Sports Umpire Name Role Phone Unavailable Primary Care Provider Unavailabl e Source Comments Patient records contain information from all sites at [facility]. For routine questions regarding patient records, call [phone] during business hours, M-F 8:00 AM - 5:00 PM Central Time. Record requests for emergency care only can be directed to [phone] at any time.[facility] Allergies Active Allergy Reactions Criticality Noted Date [...] often do you attend chur ch or jehovah's witness services? More than 4 times per year 08/03/2022 Do you belong to any clubs o r organizations such as voodoo groups, unions, fraternal or athletic groups, or [...] and heating? Not hard at all 08/03/2022 [facility] - Occupational [...] place to sleep or slept in a correction (including now)? No 08/03/2022 Nutrition Answer Date [...] Advance Directives For more information, please contact: [phone] Documents on File Type Date Recorded Patient Service Support Representative Expl anation Advance Directives 11/09/2014 12:00 AM Sai dent document. See document viewer.
--- OUTSIDE RECORDS SUMMARY | 2024-05-02 13:40 | XMS_ITS ---
Author Organization [facility] Address [address] [place] [address] Care Team Providers Care Design Director Name Role Phone Unavailable Unavailable Unavailable Surgery Details Not on file Complications Check Surgery Details section. Procedure Estimated Blood Loss Check Surgery Details section. Procedure Findings Check Surgery Details section. Procedure Specimens Taken Check Surgery Details section.
--- OUTSIDE RECORDS SUMMARY | 2024-05-02 13:40 | XMS_ITS | Continuity of Care Document ---
Author Organization [facility] Address [address] [place] [address] Phone Care Team Providers Care Felt Machine Mechanic Name Role Phone Renuka Londono CNP Unavailable [...] Pt Eval 25 Min MELISA Leach, [address], [place], [place], [id number], [place] tel:[phone] [facility] No Information 0-201 4 Bry Grayson. [address], [place], [place], [id number], [place]. tel:[phone] Referring Provider: Alex Angel, [address], [place], [address]. tel:[phone] [facility], [address], [place], [address], [place] tel:[phone] [facility] No Information Jun- 4 Jesus Dumas. [address] [place], [facility], [place], [address]. tel:[phone] Referring Provider: Piter Grossman, [address] [place] [facility], [place], [address]. tel:[phone] [place], [facility], [address], [place], [place], [id number], [place] tel:[phone] [facility] No Information 4 Jesus Dumas. [address] [place], [facility], [place], [address]. tel:[phone] Referring Provider: Alex Angel, [address], [place], [address]. tel:[phone] OP Consult 60 Min [facility], [facility], [address], [place], [place], [id number], [place] tel:[phone] [facility] No Information 4 Jose Emerson. [address], [place], [place], [address], [place]. tel:[phone] Referring Provider: Alex Angel, [address], [place], [address]. tel:[phone] Family History Family Member Type Diagnosis Age At Onset No Information Payers Payer name Insurance type Covered constitution party ID Authorvi timarcial(s) No Information Social [...]
--- OUTSIDE RECORDS SUMMARY | 2024-05-02 13:40 | XMS_ITS | Clinical Summary ---
Author Organization [facility] Address [place], [place] [address] Care Team Providers Care Web Ui Developer Name Role Phone Manuel Briceno MD Primary Care Provider Allergies Active Allergy Reactions Criticality Noted Date [...] 10 oz) F Vag Living Comments:Lewis Syndro nc 990 38w 0d 3.23 kg (7 lb 2 oz) M Vag Living Last Filed Vital Signs Vital Sign Reading Time Taken Comments Blood Pressure 103/70 09/12/2021 9:07 AM GUN STOCK MAKER Pulse 80 12/04/2023 2:58 PM GUN STOCK MAKER Temperature 36.7 ??C (98.1 ??F) 09/15/2020 3:28 PM CS T Respiratory Rate 16 09/12/2021 9:07 AM GUN STOCK MAKER Oxygen Saturation 97% 12/04/2023 2:58 PM GUN STOCK MAKER Inhaled Oxygen Concentration - - Weight 71.3 kg (157 lb 3.2 oz) 12/04/2023 2:58 P M GUN STOCK MAKER Height 160.4 cm (5' 3.15) 09/15/2020 3:28 PM CS T Body Mass Index 27.71 09/15/2020 3:28 PM GUN STOCK MAKER Plan of Treatment Upcoming Encounters Date Type Department Care Team (Late st Contact Info) Description 06/05/2024 1:00 PM CDT Ancillary Procedure [facility] [address] [place] [address] Health Maintenance Due Date Last Done Comments [...] Computer-Aided Detection. ?? COMPARISON FILM: Yes 02/17/09 [facility] 02/12/08 [facility] FINDINGS: ??Mammographically, the breast tissue has scattered [...] of Computer-Aided Detection. COMPARISON FILM: Yes 02/17/09 [facility] 02/12/08 [facility] FINDINGS: Mammographically, the breast tissue has scatteredfibroglandular [...] PANEL (02/07/2007 7:34 AM CDT) PATIENT STATUS [facility] Blood specimen (specimen) BLOOD SPECIMEN / Unknown 02/07/2007 7:34 AM CDT 02/07/2007 7:31 AM CDT Narrative [facility] - 02/07/2007 7:37 AM CDT LIPID Canceled, ordered incorrectly by laboratory. Zeferino Tanner MD CHEMISTRY [facility] [address] [place] [address] from Last 3 Months or Most Recently Relevant to Health Maintenance Advance Directives * Full Code (Latest Code Status on File) Date Activated Date Inactivated Comments 03/06/2007 11:49 AM 03/07/2007 2:08 AM Care Teams Web Ui Developer Relationship Specialty Start Date End Date Manuel Briceno MD PCP - General 12/07/09
--- OUTSIDE RECORDS SUMMARY | 2024-05-02 13:40 | XMS_ITS | Referral Summary ---
Author Organization [facility] Address [address] [place] [address] Care Team Providers Care Freezing Machine Operator Name Role Phone Unavailable Primary Care Provider Unavailabl e Source Comments Patient records contain information from all sites at [facility]. For routine questions regarding patient records, call [phone] during business hours, M-F 8:00 AM - 5:00 PM Central Time. Record requests for emergency care only can be directed to [phone] at any time.[facility] Allergies Active Allergy Reactions Criticality Noted [...] often do you attend chur ch or church services? More than 4 times per year 08/03/2022 Do you belong to any clubs o r organizations such as adventist groups, unions, fraternal or athletic groups, or [...] and heating? Not hard at all 08/03/2022 [facility] Occupat ional Health - Occupational Stress [...] place to sleep or slept in a usp (including now)? 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 See document viewer.
--- NOTE | 2024-05-02 14:00 | CRLHL7_ITS ---
For Patients: As a result of the Century Cures Act, medical imaging exams and procedure reports are released immediately into your electronic medical record. You may view this report before your referring provider. If you have questions, please contact your health care provider. INDICATION: Neck mass COMPARISON: Cervical spine MRI 09/16/2020 TECHNIQUE: CT ST Neck w/ 75cc [id number] Please note that all CT scans at this facility use dose modulation, iterative reconstruction, and/or weight-based dosing when appropriate to reduce radiation dose to as low as reasonably achievable. FINDINGS: Visualized lungs are clear. Thyroid is unremarkable. Normal salivary glands are present. The vallecula and piriform sinuses are normal. Clear visualized sinuses. Unremarkable visualized brain parenchyma. No adenopathy. Normal epiglottis. Degenerative changes. No fracture. IMPRESSION: No adenopathy or suspicious mass. Please note that all CT scans at this facility use dose modulation, iterative reconstruction, and/or weight-based dosing when appropriate to reduce radiation dose to as low as reasonably achievable. Dictated by Zhou Lauren MD @ 05/02/2024 2:29:13 PM (Electronically Signed)
== END 2024-05-02 13:37 | disposition home or self-care (01) ==
LOC: CT 13:38
PROVIDERS: PCP Internal Medicine; Visit Provider Internal Medicine
DX: R22.1 Localized swelling, mass and lump, neck (principal)
CPT/HCPCS: 70491; Q9967

== ENCOUNTER 2024-08-29 15:27 | Outpatient (CLI) | payer MEDICARE, OTHER, SELFPAY ==
--- NOTE | 2024-08-29 15:20 | CRLHL7_ITS ---
For Patients: As a result of the Century Cures Act, medical imaging exams and procedure reports are released immediately into your electronic medical record. You may view this report before your referring provider. If you have questions, please contact your health care provider. BILATERAL SCREENING MAMMOGRAM WITH COMPUTER-AIDED DETECTION AND TOMOSYNTHESIS TECHNIQUE: CC and MLO views were obtained. These mammographic images have been obtained using full-field digital technique. These mammographic images were interpreted with the benefit of computer-aided detection. Breast Tomosynthesis was used in this interpretation. COMPARISON FILM: 08/28/23, 07/18/22, 07/05/21. FINDINGS: There are scattered areas of fibroglandular density IMPRESSION: There is no radiographic evidence for malignancy. ASSESSMENT: BI-RADS Category 1: Negative RECOMMENDATION: Routine screening mammogram in 1 year. A lay language report of this examination will be provided to the patient. Zhou Lauren M.D. Diagnostic Radiologist [email or web address] [place]/Dictated by: Zhou Lauren MD @ 09/01/2024 12:55:00 PM (Electronically Signed)
--- OUTSIDE RECORDS SUMMARY | 2024-08-29 15:32 | XMS_ITS | Encounter Summary ---
Author Organization [facility] Address [address] [place] [address] Care Team Providers Care Forest Firefighter Name Role Phone Unavailable Primary Care Provider Unavailabl e Encounter Details Date Type Department Care Team ([facility] st Contact Info) Description 06/30/2024 Orders Only Division of Endocrinology in [place], [place] [address] [place] [phone] Bjorn Payan M.D. [address] [place] [phone] Hypokalemia (Primary Dx); Hypercalciuria Social History Tobacco Use Types Packs/Day Years [...] often do you attend chur ch or gnosticist services? More than 4 times per year 08/03/2022 Do you belong to any clubs o r organizations such as uatsdin groups, unions, fraternal or athletic groups, or [...] and heating? Not hard at all 08/03/2022 [facility] Occupat ional Health - Occupational [...] place to sleep or slept in a detention (including now)? No 08/03/2022 Nutrition Answer Date Recorded On average, how many serving s of [...] highest degree you have received? Doctorate 04/24/2019 Comments Unknown Sex and Gender Information Value Date Recorded Sex Assigned at Female 04/16/2018 6:21 PM CDT Legal Sex Female 5:17 PM LABORATORY CLERK Gender Identity Female 04/16/2018 6:21 PM CDT Sexual Orientation Straight 04/16/2018 6: 21 PM CDT documented as of this encounter Plan of Treatment Not on file documented as of this encounter Results * CBC without Differential (07/28/2024 10:01 AM CDT) Hemoglobin 13.4 11.6 - 15.0 g/dL 07/28/2024 10:59 AM CDT DTL Hematocrit 39.7 35.5 - 44.9 % 07/28/2024 10:59 AM CDT DTL Erythrocytes 4.34 3.92 - 5.13 x10(12)/L 07/28/2024 10:59 AM CDT DTL MCV 91.5 78.2 - 97.9 fL 07/28/2024 10:59 AM CDT DTL RBC Distrib Width 12.5 12.2 - 16.1 % 07/28/2024 10:59 AM CDT DTL Platelet Count 297 157 - 371 x10(9)/L 07/28/2024 10:59 AM CDT DTL Leukocytes 5.1 3.4 - 9.6 x10(9)/L 07/28/2024 10:59 AM CDT DTL Blood (Blood, Venous) 07/28/2024 10:01 AM CDT 07/28/2024 10:37 AM CDT Bjorn Payan M.D. LAB BLOOD ADD-ON Final Resu lt [facility] [address] [place], [place] [id number] [place] [address] * Potassium (07/28/2024 10:01 AM CDT) Potassium, S 3.7 3.6 - 5.2 mmol/L 07/28/2024 11:15 AM CDT DTL Blood (Blood, Venous) 07/28/2024 10:01 AM CDT 07/28/2024 10:51 AM CDT Bjorn Payan M.D. LAB BLOOD ADD-ON Final Resu lt [facility] [address] [place] [address], [facility] [address] [place] [address] documented in this encounter Visit Diagnoses Diagnosis Hypokalemia- Primary Hypercalciuria documented in this encounter
--- OUTSIDE RECORDS SUMMARY | 2024-08-29 15:32 | XMS_ITS | Encounter Summary ---
Author Organization [facility] Address [address] [place] [id number] Care Team Providers Care Production Leader Name Role Phone Unavailable Primary Care Provider Unavailabl e Reason for Referral * Outpatient (Routine) - Authorized Specialty Diagnoses / Procedures Referred By Flora case Referred To Contact Endocrinology Diagnoses Osteoporosis Bjorn Payan M.D. [address] [place] [address] Phone: tel: fax: [facility] Referral ID Status Reason Start Date Expiration Date V isits Requested Visits Authorized [id number] Authorized 07/28/2024 01/27/2026 1 1 Scheduling Instructions Let me know date of visit to order ITC Reclast. If D LH not available for [id number] visit, set up subsequent video visit. Appointments and ITC Reclast (to be scheduled) on 07/29/2025 or as soon as possible thereafter depending upon patient's calendar. Reason for Visit * Outpatient (Routine) - Closed Specialty Diagnoses / Procedures Referred By Flora case Referred To Contact Endocrinology Diagnoses Osteoporosis Bjorn Payan M.D. [address] [place] [address] Phone: tel: fax: [facility] Referral ID Status Reason Start Date Expiration Date Visits Re quested Visits Authorized [id number] Closed 07/20/2023 07/19/2026 1 1 Encounter Details Date Type Department Care Team (Late st Contact Info) Description 07/28/2024 3:00 PM CDT Office Visit Division of Endocrinology in [place], [place] [address] [place] [address] Bjorn Payan M.D. [address] [place] [address] Osteoporosis Social History Tobacco Use Types Packs/Day Years Used Date Smoking Tobacco: Never Passive Smoke Exposure: Never Smokeless Tobacco: Never Alcohol Use Standard Drinks/Week Comments No 0 (1 standard drink = 0.6 oz pur e alcohol) [facility] Utilities Answer Date Recorded In the past 12 months has e electric, gas, oil, or water [employer] threatened to shut off services in your home? No 07/21/2024 Humiliation, Afraid, Rape, and Kick questionnair e [...] often do you attend chur ch or worship services? More than 4 times per year 08/03/2022 Do you belong to any clubs o r organizations such as moravian groups, unions, fraternal or athletic groups, or [...] and heating? Not hard at all 08/03/2022 [facility] - Occupational Stress [...] exercise (like a brisk walk)? 7 days 07/21/2024 On average, how many minutes do you engage in exercise at this level? 60 min 07/21/2024 Hunger Vital Sign Answer Date Recorded Within the past 12 months, y ou worried that your food would run out before you got the money to buy more. Never true 07/21/20 24 Within the past 12 months, t he food you bought just didn't last and you didn't have money to get more. Never true 07/21/2024 PRAPARE - Transportation Answer Date Re corded In the past 12 months, has l ack of transportation kept you from medical appointments or from getting medications? No 07/08 In the past 12 months, has l ack of transportation kept you from meetings, work, or from getting things needed for daily living? No 07/21/2024 Nutrition Answer Date Recorded On average, how many serving s of fruits and vegetables do you eat per day (serving size is equal to 1 cup or approximately the size of a tennis ball)? 3-5 07/21/2024 Dental Answer Date Recorded Dental: Regular Dentist Yes 08/03/20 Employment Answer Date Recorded Employment status Retired 07/21/2024 Housing Stability Answer Date Recorded What is your living situation today? I [address] a [facility] [address] to live 07/21/2024 Education Answer Date Recorded What is the highest level of school you have completed or the highest degree you have received? 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 - 07/28/2024 3:00 PM CDT [facility] ENDOCRINOLOGY, DIABETES, METABOLISM AND NUTRITION Date of Visit: 07/28/2024 Clinician: Bjorn Payan M.D. SUBJECTIVE CHIEF COMPLAINT/REASON FOR VISIT Osteoporosis HISTORY OF PRESENT ILLNESS Cleopatra Parrish is a 68 y.o. female who presents for osteoporosis management. Osteoporosis therapy: 2018 zoledronate/Reclast for 1 dose [id number] abaloparatide/Tymlos 2 years therapy. 07/2021 through 08/2023 zoledronate/Reclast for 3 doses. Reclast tolerated well Since our last visit 07/20/2023, the history is significant for the following: - No history of stumbles or falls. - No history of clinical fractures. - No history of clinical stone disease. - No history of long-term glucocorticoid steroid. She had a Medrol Dosepak for ???swollen neck glands?? 04/2024. She takes Tums ultra (1000 mg calcium carbonate, 400 mg calcium) as 2 tablets in the evening to supplement her dairy intake. Dairy intake is usually 1.5 cups of milk daily and occasional slice of cheese. She takes 1000 units vitamin D3 once daily. 07/28/2024 bone mineral density: - Lumbar spine (L2-3) 0.913 g per cm2 (T-score -2.5). - Hip density is lowest at the femur neck sites with lowest density at the right femur neck 0.691 gper cm2 (T-score-2.5). 2023 LABS: - Normal total serum calcium and creatinine. 2022 LABS: - CTX biochemical markers of bone turnover has been in the low premenopausal range during Reclast therapy. - Total vitamin-D 52 ng/mL The following portions of the patient's history were also reviewed and updated as appropriate: allergies, current medications, family history, medical history, social history, surgical history, and problem list. Current Outpatient Medications Medication Sig Dispense Refill CALCIUM ORAL Take 1,000 mg by mouth daily. chlorthalidone (HYGROTON) 25 mg tablet Take 25 mg by mouth 2 (two) times a day. cholecalciferol, vitamin D3, 25 mcg (1,000 Unit) tablet Take 1 tablet by mouth daily. loratadine (CLARITIN) 10 mg tablet Take 10 mg by mouth daily. LORazepam (ATIVAN) 0.5 mg tablet Take 0.5 mg by mouth as needed for anxiety. omeprazole (PriLOSEC) 40 mg capsule Take 1 capsule by mouth 2 (two) times a day. polyethylene glycol (MIRALAX) 17 gram powder packet Take 1 g by mouth daily. 17 mg daily. prednisoLONE acetate (PRED FORTE) 1 % ophthalmic suspension SHAKE LIQUID AND INSTILL 1 DROP IN BOTHEYES TWICE DAILY FOR 2 WEEKS triamcinolone (KENALOG) 0.1 % dental paste Apply 1 Application to the mouth or throat as needed. zoledronic ebvc-glofwttZ-fzuax (Reclast) 5 mg/100 mL piggyback Infuse 5 mg into a venous catheter. No current facility-administered medications for this visit. Past Medical History: Diagnosis Date Gastroesophageal Reflux Disease NOS Many years ago - maybe Hyperthyroidism September 2014 Osteoporosis December 2013 Other Injury Of Unspecified Body Region December-February 2014, 4 major broken bones in 2 months Parathroidectomy - November 2014 Stone Kidney 1987-bowen Past Surgical History: Procedure Laterality Date CHOLECYSTECTOMY COLECTOMY PARTIAL / TOTAL OPEN REDUCTION INTERNAL FIXATION - DISTAL RADIUS FRACTURE Right 03/06/2014 OTHER SURGICAL HISTORY October, Laparotomy, Bowel Resection PARATHYROIDECTOMY - CENTRAL NECK EXPLORATION N/A 11/09/2014 Parathyroidectomy - central neck exploration Notes: Left superior, biopsy of right inferior TONSILLECTOMY Social History Tobacco Use Smoking status: Never Passive exposure: Never Smokeless tobacco: Never Substance Use Topics Alcohol use: No Most recent height 159.6 cm and weight 70 kg (BMI 27.4 kg per m2) On examination/observation patient is in no acute distress. Alert and oriented and converses easily. Lightly tanned in sun-exposed areas. Noncushingoid in appearance. Muscle mass appropriate for age and gender. Rises easily from seated position. Gait and balance normal. ASSESSMENT / PLAN I reviewed the pertinent radiographic and laboratory test findings and discussed these results withthe patient. I discussed the following treatment plan with the patient: #1 Osteoporosis We discussed issues in detail related to skeletal health, to include continuation of pharmacotherapy versus beginning a bisphosphonate drug holiday, and have agreed on the followin. Although patient is concerned about her bone mineral density, the CTX is in a healthy low premenopausal range with Reclast therapy and I believe that we could begin every other year Reclast administration. 2. We will plan to have patient return in 1 year for repeat bone mineral density and CTX biochemical marker bone turnover. 3. Vitamin-D level is pending and I will write her with the results with goal vitamin-D 30-50 ng/mLand safe/acceptable range up to 60 ng/mL. 4. She will continue with her same calcium supplement but divide her calcium to twice daily intake with meals for best absorption. Total time for encounter 40 minutes with more than 50% of time in [id number] discussion with the patient who is alone today. documented in this encounter Plan of Treatment Scheduled Orders Name Type Priority Associated Diagnoses Orde r Schedule 25-Hydroxyvitamin D2 and D3 Lab Routine Osteoporosis 1 Occurrences starting 07/28/2024 until 07/28/2025 Beta-CrossLaps (Beta-CTx) Lab Routine Osteoporosis 1 Occurrences starting 07/28/2024 until 07/28/2025 Calcium, Total Lab Routine Osteoporosis 1 Occurrences starting 07/28/2024 until 07/28/2025 Creatinine with Estimated GFR Lab Routine Osteoporosis 1 Occurrences starting 07/28/2024 until 07/28/2025 Scheduled Referrals Name Type Priority Associated Diagnoses Order Schedule Endocrinology office visit (clinic) Outpatient Referral Routine Osteoporosis Expected: 07/29/2025 (Approximate), Expires: 10/28/2025 documented as of this encounter Results * 25-Hydroxyvitamin D2 and D3 (07/28/2024 9:59 AM CDT) 25-Hydroxy D2 <4.0 ng/mL 07/30/2024 3:03 PM CDT [facility] 25-Hydroxy D3 60 ng/mL 07/30/2024 3:03 PM CDT [facility] 25-Hydroxy D Total 60 ng/mL 2023 3:03 PM CDT [facility] Comment: Interpretation: 51-80 ng/mL (increased risk of hypercalciuria) ----REFERENCE VALUE---- 25-HYDROXY D TOTAL (D2+D3) Optimum levels in the healthy population are 20-50. ----ADDITIONAL INFORMATION---- This test was developed and its performance characteristics determined by [facility] in a manner consistent with CLIA requirements. This test has not been cleared or approved by the U.S. Food and Drug Administration. Blood (Blood, Venous) 07/28/2024 9:59 AM CDT 07/29/2024 10:00 AM CDT us Bjorn Payan M.D. LAB BLOOD ADD-ON Final Resu lt [facility] [address] [place] [address] [facility] [address] [place] [address] [place] [address] documented in this encounter Visit Diagnoses Diagnosis Osteoporosis documented in this encounter
--- OUTSIDE RECORDS SUMMARY | 2024-08-29 15:32 | XMS_ITS | Clinical Summary ---
Author Organization [facility] Address [address] [place] [id number] Care Team Providers Care Corn Husker Name Role Phone Unavailable Primary Care Provider Unavailabl e Source Comments Patient records contain information from all sites at [facility]. For routine questions regarding patient records, call [phone] during business hours, M-F 8:00 AM - 5:00 PM Central Time. Record requests for emergency care only can be directed to [phone] at any time.[facility] Allergies Active Allergy Reactions Criticality Noted Date Comments Nickel Other (see comments) High 03/06/2018 Pain Pollen Extracts Other (see comments) 07/15/2021 Ragweed Other (see comments) 07/15/2021 Medications * This document contains information received from the source organization and may not represent a complete record from that organization. polyethylene glycol (MIRALAX) 17 gram powder packet Take 1 g by mouth daily. 17 mg daily. 5 Active omeprazole (PriLOSEC) 40 mg capsule Take 1 capsule by mouth 2 (two) times a day. 5 Active cholecalciferol , vitamin D3, 25 mcg (1,000 Unit) tablet Take 1 tablet by mouth daily. 5 Active chlorthalidone (HYGROTON) 25 mg tablet Take 25 mg by mouth 2 (two) times a day. 7 Active loratadine (CLARITIN) 10 mg tablet Take 10 mg by mouth daily. Active LORazepam (ATIVAN) 0.5 mg tablet Take 0.5 mg by mouth as needed for anxiety. 0 Active CALCIUM ORAL Take 1,000 mg by mouth daily. Active prednisoLONE acetate (PRED FORTE) 1 % ophthalmic suspension SHAKE LIQUID AND INSTILL 1 DROP IN BOTH EYES TWICE DAILY FOR 2 WEEKS Active triamcinolone (KENALOG) 0.1 % dental paste Apply 1 Application to the mouth or throat as needed. Active zoledronic znip-zubedmfP-m ater (Reclast) 5 mg/100 mL piggyback Infuse 5 mg into a venous catheter. Active Active Problems Problem Noted Date Diagnosed Date Hypercalciuria 04/22/2018 Hypokalemia 04/22/2018 Osteoporosis 03/10/2018 Encounters * This document contains information received from the source organization and may not represent a complete record from that organization. Date Type Department Care Team Description 07/28/2024 3:35 PM CDT Lab RST RO LMP [address] [place] [phone] Bjorn Payan M.D. Osteoporosis 07/28/2024 3:00 PM CDT Office Visit Division of Endocrinology in [place], [place] [address] [place] [phone] Bjorn Payan M.D. Osteoporosis 07/28/2024 10:11 AM CDT - 07/28/2024 11:59 PM CDT Hospital Encounter Department of Radiology, [place], [place] [address] [place] [address] Bjorn Payan M.D. Osteoporosis Discharge Disposition: Home or Self Care 07/28/2024 9:30 AM CDT - 07/28/2024 10:10 AM CDT Hospital Encounter Department of Laboratory Medicine and Pathology, [facility] in [place], [place] [address] [place] [phone] Bjorn Payan M.D. Osteoporosis; Hypokalemia; Hypercalciuria Discharge Disposition: Home or Self Care 07/20/2024 Orders Only Division of Endocrinology in [place], [place] [address] [place] [phone] Bjorn Payan M.D. 07/14/2024 3:15 PM CDT Clinical Communication Virtual Review in [place], [place] 200 [place] [address] Pre-visit Intake 06/30/2024 Orders Only Division of Endocrinology in [place], [place] [address] [place] [phone] Bjorn Payan M.D. Hypokalemia (Primary Dx); Hypercalciuria 06/30/2024 Clinical Communication Division of Endocrinology in [place], [place] [address] [place] [phone] Bjorn Payan M.D. from Last 3 Months Immunizations Name Administration Dates Next Due DT, Pediatric 07/27/1985 HepA / HepB 10/23/2016,09/21/2016 Hib (PRP-OMP) (PedvaxHIB) 02/12/2019 Influenza Split 07/08/2014,07/08/2013 Influenza TIV (IM) 07/24/2012, [...] 10/08/2004 Tdap 01/25/2016,06/23/2011 TyVi (inj) 09/21/2016 influenza trivalent high dos e (HD)(PF) 07/08/2013 influenza trivalent vaccine (6 months and older)(PF) 08/04/2016,07/01/2015,07/09/2013,2011,09/13/2011,06/30/2009 influenza vaccine quad (FLUZONE/FLUARIX) (6 months and [...] Passive Smoke Exposure: Never Smokeless Tobacco: Never Tobacco Cessation:Counseling Given: Not Answered Alcohol Use Standard Drinks/Week Comments No 0 (1 standard drink = 0.6 oz pur e alcohol) [facility] [employer]ities Answer Date Recorded In the past 12 months has e [employer], oil, or water [employer] threatened to shut off services in your [...] week 08/03/2022 How often do you attend [facility] or taoist services? More than 4 times per year 08/03/2022 Do you belong to any clubs o r organizations such as presybeterian groups, unions, fraternal or athletic groups, or [...] and heating? Not hard at all 08/03/2022 [facility] - Occupational [...] your living situation today? I have a [facility] place to live 07/21/2024 Education Answer Date Recorded What is the highest level of school you have completed or the highest degree you have received? 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 Gender Identity Female 04/16/2018 6:21 PM CDT Sexual Orientation Straight 04/16/2018 6: 21 PM CDT Last Filed Vital Signs Vital Sign Reading Time Taken Comments Blood Pressure 112/75 07/28/2024 3:04 PM CDT Pulse 78 07/28/2024 3:04 PM CDT Temperature 36.4 C (97.5 F) 08/10/2023 11:39 AM CDT Respiratory Rate 18 08/10/2023 11:39 AM CDT Oxygen Saturation - - Inhaled Oxygen Concentration - - Weight 70 kg (154 lb 5.2 oz) 07/28/2024 3:04 PM CDT Height 159.6 cm (5' 2.84) 07/28/2024 3:04 PM CD T Body Mass Index 27.48 07/28/2024 3:04 PM CDT Plan of Treatment Health Maintenance Due Date Last Done Comments CT Colonography 1955 Cologuard 1955 FIT 1955 Fasting Glucose for Diabetes Screening 1955 Hepatitis C Screening 1955 Hepatitis A Vaccines (3 of 3 - Hep A risk 3-dose series) 03/23/2017 10/23/2016, 09/21/2016 Hepatitis B Vaccines (3 of 3 - Hep B Twinrix 3-dose series) 03/23/2017 10/23/2016, 09/21/2016 Mammogram 10/09/2017 10/09/2016 (Perf ormed elsewhere), 05/26/2015 (Performed elsewhere), 05/06/2013 (Performed elsewhere) Pneumococcal vaccine (65+ years) (2 of 2 - PCV) 01/20/2023 01/20/2022, 02/12/2019 Colonoscopy 07/08/2023 07/08/2013 (Perf ormed elsewhere), 02/10/2012, 12/06/2006 (Performed elsewhere) Colorectal Cancer Screening 07/08/2023 Depression Screening (Annual PHQ-2) 10/08/2023 Fall Risk Screen (Annual) 10/08/2023 DTaP,Tdap,and Td Vaccines (6 - Td or Tdap) 07/17/2034 07/17/2024, 01/25/2016, 06/23/2011, Additional history exists Cervical/Vaginal Cancer Screening Discontinued 10/09/2016 (Performed elsewhere), 04/07/2013 (Performed elsewhere) Zoster Vaccines Completed 09/22/2020, 09/07, 07/22/2020 RSV vaccine - (32-36 weeks) or 60+ years Completed 06/28/2023 COVID-19 Vaccine Completed 07/17/2024, , 07/14/2022, Additional history exists Influenza Vaccine Completed 07/17/2024, , 06/28/2023, Additional history exists IPV Vaccines Aged Out No longer eligi ble based on patient's age to complete this topic Procedures Procedure Name Priority Date/Time Associated Diagnosis Comments BMD BONE DENSITY SPINE HIPS RAD - Routine (most inpatients and all outpatients) 07/28/2024 10:39 AM CDT Osteoporosis CBC WITHOUT DIFFERENTIAL, B Routine 07/28/2024 10:01 AM CDT Hypokalemia Hypercalciuria POTASSIUM, S/P Routine 07/28/2024 10:01 AM CDT Hypokalemia Hypercalciuria CALCIUM, TOT, S/P Routine 07/28/2024 10: 01 AM CDT Osteoporosis CREATININE WITH EGFR, S/P Routine 07/28/2024 10:01 AM CDT Osteoporosis 25-HYDROXYVITAMIN D2 AND D3, S Routine 07/28/2024 9:59 AM CDT Osteoporosis from Last 3 Months Results * BMD Bone Density Spine Hips (07/28/2024 10:39 AM CDT) Anatomical Region Laterality Modality Hip, Lumbar Spine, Nuclear M edicine RST LOS, Musculoskeletal ARZ LOS, Muskuloskeletal FLA LOS N/A Radio graphic Imaging Impressions 07/28/2024 11:00 AM CDT Osteoporosis AP Spine (region: L2-L3) Osteoporosis DualFemur (region: Neck Right) Narrative 07/28/2024 11:00 AM CDT EXAM: BMD BONE DENSITY SPINE HIPS Bone Mineral Density (BMD) analysis performed on [employer] with serial number [id number]. COMPARISON: Serial Comparisons Left Total Hip results: Exam Date BMD T-score 07/12/2015 0.744 g/cm2 -2.1 03/27/2016 0.742 g/cm2 -2.1 03/21/2017 0.725 g/cm2 -2.2 04/19/2018 0.749 g/cm2 -2.1 04/29/2019 0.723 g/cm2 -2.3 07/01/2020 0.730 g/cm2 -2.2 07/18/2021 0.731 g/cm2 -2.2 07/19/2022 0.749 g/cm2 -2.1 07/20/2023 0.758 g/cm2 -2.0 07/28/2024 0.758 g/cm2 -2.0 Change vs. Previous (difference): 0.000 g/cm2 Change vs. Previous (%): 0.0 % The absolute BMD change from previous, 0.000 g/cm2, is greater than least significant change: No The absolute BMD change from baseline, 0.014 g/cm2, is greater than least significant change: No Right Total Hip results: Exam Date BMD T-score 07/12/2015 0.739 g/cm2 -2.1 03/27/2016 0.716 g/cm2 -2.3 03/21/2017 0.714 g/cm2 -2.3 04/19/2018 0.747 g/cm2 -2.1 04/29/2019 0.730 g/cm2 -2.2 07/01/2020 0.721 g/cm2 -2.3 07/18/2021 0.736 g/cm2 -2.2 07/19/2022 0.761 g/cm2 -2.0 07/20/2023 0.761 g/cm2 -2.0 07/28/2024 0.772 g/cm2 -1.9 Change vs. Previous (difference): 0.011 g/cm2 Change vs. Previous (%): 1.4 % The absolute BMD change from previous, 0.011 g/cm2, is greater than least significant change: No The absolute BMD change from baseline, 0.033 g/cm2, is greater than least significant change: No Combined Total Hip results: Exam Date BMD T-score 07/12/2015 0.742 g/cm2 -2.1 03/27/2016 0.729 g/cm2 -2.2 03/21/2017 0.720 g/cm2 -2.3 04/19/2018 0.748 g/cm2 -2.1 04/29/2019 0.726 g/cm2 -2.2 07/01/2020 0.725 g/cm2 -2.2 07/18/2021 0.734 g/cm2 -2.2 07/19/2022 0.755 g/cm2 -2.0 07/20/2023 0.760 g/cm2 -2.0 07/28/2024 0.765 g/cm2 -1.9 Change vs. Previous (difference): 0.005 g/cm2 Change vs. Previous (%): 0.7 % The absolute BMD change from previous, 0.005 g/cm2, is greater than least significant change: No The absolute BMD change from baseline, 0.023 g/cm2, is greater than least significant change: No Spine results: Exam Date BMD T-score 07/12/2015 0.778 g/cm2 -3.5 03/27/2016 0.828 g/cm2 -3.1 03/21/2017 0.758 g/cm2 -3.7 04/19/2018 0.800 g/cm2 -3.4 04/29/2019 0.824 g/cm2 -3.2 07/01/2020 0.864 g/cm2 -2.9 07/18/2021 0.907 g/cm2 -2.5 07/19/2022 0.966 g/cm2 -2.0 07/20/2023 0.906 g/cm2 -2.5 07/28/2024 0.913 g/cm2 -2.5 Change vs. Previous (difference): 0.007 g/cm2 Change vs. Previous (%): 0.8 % The absolute BMD change from previous, 0.007 g/cm2, is greater than the least significant change: No The absolute BMD change from baseline, 0.135 g/cm2, is greater than the least significant change: Yes ----- FINDINGS: Left Hip: Femur Neck: BMD = 0.711 g/cm2 T-score = -2.4 Z-score = -0.9 Total Hip: BMD = 0.758 g/cm2 T-score = -2.0 Z-score = -0.8 Right Hip: Femur Neck: BMD = 0.691 g/cm2 T-score = -2.5 Z-score = -1.1 Total Hip: BMD = 0.772 g/cm2 T-score = -1.9 Z-score = -0.7 Lumbar Spine: L1: BMD = 0.917 g/cm2 L2: BMD = 0.908 g/cm2 L3: BMD = 0.917 g/cm2 L4: BMD = 1.071 g/cm2 Total Lumbar Spine (L2-L3): BMD = 0.913 g/cm2 T-score = -2.5 Z-score = -1.1 Trabecular Bone Score: L2-L3: TBS = 1.369 < 1.23: low 1.23 -1.31: borderline > 1.31: normal A low TBS has been associated with increased risk of fractures in certain populations. TBS should not be used alone to determine treatment recommendations. It can be used in conjunction with BMD and FRAX to inform management. Please note: A more comprehensive DXA report, including images and graphs, is available in QREADS. In the absence of other causes of low BMD or demonstrated skeletal fragility, osteoporosis may be diagnosed in post-menopausal women and men at or above age 50 when the T-score is at or below -2.5 as defined by the WHO. Low bone density is present at T-scores between -1 and -2.5. The diagnosis in pre-menopausal women and men < age 50 can be based on low bone density or evidence of skeletal fragility in the appropriate clinical setting. Degenerative changes are present which may spuriously elevate the spine BMD measurement. Patient does not meet ISCD guidelines for FRAX calculations. (on treatment) Procedure Note Mikhail, Edgar Clarke M.D. - 07/28/2024 EXAM: BMD BONE DENSITY SPINE HIPS Bone Mineral Density (BMD) analysis performed on [employer] with serialnumber [id number]. COMPARISON: Serial Comparisons Left Total Hip results: Exam Date BMD T-score 07/12/2015 0.744 g/cm2 -2.1 03/27/2016 0.742 g/cm2 -2.1 03/21/2017 0.725 g/cm2 -2.2 04/19/2018 0.749 g/cm2 -2.1 04/29/2019 0.723 g/cm2 -2.3 07/01/2020 0.730 g/cm2 -2.2 07/18/2021 0.731 g/cm2 -2.2 07/19/2022 0.749 g/cm2 -2.1 07/20/2023 0.758 g/cm2 -2.0 07/28/2024 0.758 g/cm2 -2.0 Change vs. Previous (difference): 0.000 g/cm2 Change vs. Previous (%): 0.0 % The absolute BMD change from previous, 0.000 g/cm2, is greater than least significant change: No The absolute BMD change from baseline, 0.014 g/cm2, is greater than least significant change: No Right Total Hip results: Exam Date BMD T-score 07/12/2015 0.739 g/cm2 -2.1 03/27/2016 0.716 g/cm2 -2.3 03/21/2017 0.714 g/cm2 -2.3 04/19/2018 0.747 g/cm2 -2.1 04/29/2019 0.730 g/cm2 -2.2 07/01/2020 0.721 g/cm2 -2.3 07/18/2021 0.736 g/cm2 -2.2 07/19/2022 0.761 g/cm2 -2.0 07/20/2023 0.761 g/cm2 -2.0 07/28/2024 0.772 g/cm2 -1.9 Change vs. Previous (difference): 0.011 g/cm2 Change vs. Previous (%): 1.4 % The absolute BMD change from previous, 0.011 g/cm2, is greater than least significant change: No The absolute BMD change from baseline, 0.033 g/cm2, is greater than least significant change: No Combined Total Hip results: Exam Date BMD T-score 07/12/2015 0.742 g/cm2 -2.1 03/27/2016 0.729 g/cm2 -2.2 03/21/2017 0.720 g/cm2 -2.3 04/19/2018 0.748 g/cm2 -2.1 04/29/2019 0.726 g/cm2 -2.2 07/01/2020 0.725 g/cm2 -2.2 07/18/2021 0.734 g/cm2 -2.2 07/19/2022 0.755 g/cm2 -2.0 07/20/2023 0.760 g/cm2 -2.0 07/28/2024 0.765 g/cm2 -1.9 Change vs. Previous (difference): 0.005 g/cm2 Change vs. Previous (%): 0.7 % The absolute BMD change from previous, 0.005 g/cm2, is greater than least significant change: No The absolute BMD change from baseline, 0.023 g/cm2, is greater than least significant change: No Spine results: Exam Date BMD T-score 07/12/2015 0.778 g/cm2 -3.5 03/27/2016 0.828 g/cm2 -3.1 03/21/2017 0.758 g/cm2 -3.7 04/19/2018 0.800 g/cm2 -3.4 04/29/2019 0.824 g/cm2 -3.2 07/01/2020 0.864 g/cm2 -2.9 07/18/2021 0.907 g/cm2 -2.5 07/19/2022 0.966 g/cm2 -2.0 07/20/2023 0.906 g/cm2 -2.5 07/28/2024 0.913 g/cm2 -2.5 Change vs. Previous (difference): 0.007 g/cm2 Change vs. Previous (%): 0.8 % The absolute BMD change from previous, 0.007 g/cm2, is greater than the least significant change: No The absolute BMD change from baseline, 0.135 g/cm2, is greater than the least significant change: Yes ----- FINDINGS: Left Hip: Femur Neck: BMD = 0.711 g/cm2 T-score = -2.4 Z-score = -0.9 Total Hip: BMD = 0.758 g/cm2 T-score = -2.0 Z-score = -0.8 Right Hip: Femur Neck: BMD = 0.691 g/cm2 T-score = -2.5 Z-score = -1.1 Total Hip: BMD = 0.772 g/cm2 T-score = -1.9 Z-score = -0.7 Lumbar Spine: L1: BMD = 0.917 g/cm2 L2: BMD = 0.908 g/cm2 L3: BMD = 0.917 g/cm2 L4: BMD = 1.071 g/cm2 Total Lumbar Spine (L2-L3): BMD = 0.913 g/cm2 T-score = -2.5 Z-score = -1.1 Trabecular Bone Score: L2-L3: TBS = 1.369 < 1.23: low 1.23 -1.31: borderline > 1.31: normal A low TBS has been associated with increased risk of fractures in certainpopulations. TBS should not be used alone to determine treatmentrecommendations. It can be used in conjunction with BMD and FRAX to informmanagement. Please note: A more comprehensive DXA report, including images and graphs,is available in QREADS. In the absence of other causes of low BMD or demonstrated skeletalfragility, osteoporosis may be diagnosed in post-menopausal women and menat or above age 50 when the T-score is at or below -2.5 as defined by theWHO. Low bone density is present at T-scores between -1 and -2.5. The diagnosis in pre-menopausal women andmen < age 50 can be based on low bone density or evidence of skeletalfragility in the appropriate clinical setting. Degenerative changes are present which may spuriously elevate the spineBMD measurement. Patient does not meet ISCD guidelines for FRAX calculations. (ontreatment) IMPRESSION: Osteoporosis AP Spine (region: L2-L3) Osteoporosis DualFemur (region: Neck Right) Bjorn Payan M.D. Little DXA PROCEDURES Final Re sult * CBC without Differential (07/28/2024 10:01 AM [...] 10:01 AM CDT 07/28/2024 10:37 AM CDT us Bjorn Payan M.D. LAB BLOOD ADD-ON Final Resu lt Performing Organization Address City/[facility]/ZIP Co de Phone Number [facility] [address] [place] [address], [facility] [address] [place] [address] * Potassium (07/28/2024 10:01 AM CDT) Potassium, S 3.7 3.6 - 5.2 mmol/L 07/28/2024 11:15 AM CDT DTL Blood (Blood, Venous) 07/28/2024 10:01 AM CDT 07/28/2024 10:51 AM CDT us Bjorn Payan M.D. LAB BLOOD ADD-ON Final Resu lt Performing Organization Address City/[facility]/ZIP Co de Phone Number [facility] [address] [place] [address], [facility] [address] [place] [address] * Creatinine with Estimated GFR (07/28/2024 10:01 AM CDT) Creatinine 0.79 0.59 - 1.04 mg/dL 07/28/2024 11:15 AM CDT DTL Estimated GFR (eGFR) 82 >=60 mL/min/BSA 07/28/2024 11:15 AM CDT DTL Comment: Estimated GFR calculated using the 2020 CKD_EPI creatinine equation. Blood (Blood, Venous) 07/28/2024 10:01 AM CDT 07/28/2024 10:51 AM CDT us Bjorn Payan M.D. LAB [place]OD [place] [address], [place] [address] * Calcium, Total (07/28/2024 10:01 AM CDT) Calcium, Total, S 9.5 8.8 - 10.2 mg/dL 07/28/2024 11:15 AM CDT DTL Blood (Blood, Venous) 07/28/2024 10:01 AM CDT 07/28/2024 10:51 AM CDT Bjorn Payan M.D. LAB [place]LOOD [place] [address], [place] [address] * 25-Hydroxyvitamin D2 and D3 (07/28/2024 9:59 AM CDT) 25-Hydroxy D2 <4.0 ng/mL 07/30/2024 3:03 PM CDT SDSC 25-Hydroxy D3 60 ng/mL 07/30/2024 3:03 PM CDT SDS 25-Hydroxy D Total 60 ng/mL 2023 3:03 PM CDT SDS Comment: Interpretation: 51-80 ng/mL (increased risk of hypercalciuria) ----REFERENCE VALUE---- 25-HYDROXY D TOTAL (D2+D3) Optimum levels in the healthy population are 20-50. ----ADDITIONAL INFORMATION---- This test was developed and its performance characteristics determined by [facility] in a manner consistent with CLIA requirements. This test has not been cleared or approved by the U.S. Food and Drug Administration. Blood (Blood, Venous) 07/28/2024 9:59 AM CDT 07/29/2024 10:00 AM CDT us Bjorn Payan M.D. LAB BLOOD ADD-ON Final Resu lt [facility] [address] [place] [address] [facility] [address] [place] [address] 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 See document viewer.
--- OUTSIDE RECORDS SUMMARY | 2024-08-29 15:32 | XMS_ITS | Encounter Summary ---
Author Organization [facility] Address [address] [place] [phone] Care Team Providers Care Development Associate Name Role Phone Unavailable Primary Care Provider Unavailabl e Reason for Referral * Outpatient (Routine) - Closed Specialty Diagnoses / Procedures Referred By Contac t Referred To Contact Diagnoses Osteoporosis Procedures BMD Bone Density Spine Hips Bjorn Payan M.D. [address] [place] [phone] Phone: tel: fax: [facility] Referral ID Status Reason Start Date Expiration Date Visits Re quested Visits Authorized [id number] Closed 07/20/2023 07/19/2024 1 1 Reason for Visit * Outpatient (Routine) - Closed Specialty Diagnoses / Procedures Referred By Contac t Referred To Contact Diagnoses Osteoporosis Procedures BMD Bone Density Spine Hips Bjorn Payan M.D. [address] [place] [phone] Phone: tel: fax: [facility] Referral ID Status Reason Start Date Expiration Date Visits Re quested Visits Authorized [id number] Closed 07/20/2023 07/19/2024 1 1 Encounter Details Date Type Department Care Team (Latest Contact Info) Description 07/28/2024 10:11 AM CDT - 07/28/2024 11:59 PM CDT Hospital Encounter Department of Radiology, [facility], in [place], [place] 200 [place] [address] Bjorn Payan M.D. 200 [place] [phone] Osteoporosis Discharge Disposition: Home or Self Care Social History Tobacco Use Types Packs/Day Years Used Date Smoking Tobacco: Never Passive Smoke Exposure: Never Smokeless Tobacco: Never Alcohol Use Standard Drinks/Week Comments No 0 (1 standard drink = 0.6 oz pur e alcohol) [facility] Utilities Answer Date Recorded In the past 12 months has e electric, gas, oil, or water company threatened to shut off services in your [...] often do you attend chur ch or baptism services? More than 4 times per year 08/03/2022 Do you belong to any clubs o r organizations such as latter day groups, unions, fraternal or athletic groups, or [...] and heating? Not hard at all 08/03/2022 [facility] - [...] your living situation today? I have a [facility] place to live 07/21/2024 Education Answer Date Recorded What is the highest level of school you have completed or the highest degree you have received? 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 chlorthalidone (HYGROTON) 25 mg tablet Take 25 mg by mouth 2 (two) times a day. 05/28/2017 cholecalciferol, vitamin D3, 25 mcg (1,000 Unit) tablet Take 1 tablet by mouth daily. 07/12/2015 loratadine (CLARITIN) 10 mg tablet Take 10 mg by mouth daily. LORazepam (ATIVAN) 0.5 mg tablet Take 0.5 mg by mouth as needed for anxiety. 12/25/2019 omeprazole (PriLOSEC) 40 mg capsule Take 1 capsule by mouth 2 (two) times a day. 12/01/2014 polyethylene glycol (MIRALAX) 17 gram powder packet Take 1 g by mouth daily. 17 mg daily. 07/12/2015 prednisoLONE acetate (PRED FORTE) 1 % ophthalmic suspension SHAKE LIQUID AND INSTILL 1 DROP IN BOTH EYES TWICE DAILY FOR 2 WEEKS triamcinolone (KENALOG) 0.1 % dental paste Apply 1 Application to the mouth or throat as needed. zoledronic [id number]-dacwobmF-mh ter (Reclast) 5 mg/100 mL piggyback Infuse 5 mg into a venous catheter. documented as of this encounter Plan of Treatment Not on file documented as of this encounter Procedures Procedure Name Priority Date/Time Associated Diagnosis Comments BMD BONE DENSITY SPINE HIPS RAD - Routine (most inpatients and all outpatients) 07/28/2024 10:39 AM CDT Osteoporosis documented in this encounter Results * BMD Bone Density Spine Hips [...] Bone Mineral Density (BMD) analysis performed on [employer] with serial number [id number]. COMPARISON: Serial Comparisons Left Total Hip results: [...] including images and graphs, is available in [employer]. In the absence of other causes of [...] Bone Mineral Density (BMD) analysis performed on [employer] with serialnumber [id number]. COMPARISON: Serial Comparisons Left Total Hip results: [...] L2-L3) Osteoporosis DualFemur (region: Neck Right) Bjorn DYER DXA PROCEDURES Final Re sult documented in this encounter Visit Diagnoses Diagnosis Osteoporosis documented in this encounter
--- OUTSIDE RECORDS SUMMARY | 2024-08-29 15:32 | XMS_ITS | Encounter Summary ---
Author Organization [facility] Address [address] [place] [address] Care Team Providers Care Interstate Bus Driver Name Role Phone Unavailable Primary Care Provider Unavailabl e Encounter Details Date Type Department Care Team ([facility] st Contact Info) Description 07/28/2024 3:35 PM CDT Lab RST RO LMP [address] [place] [phone] Bjorn Payan M.D. [address] [place] [phone] Osteoporosis Social History Tobacco Use Types Packs/Day Years Used Date Smoking Tobacco: Never Passive Smoke Exposure: Never Smokeless Tobacco: Never Alcohol Use Standard Drinks/Week Comments No 0 (1 standard drink = 0.6 oz pur e alcohol) [facility] Utilities Answer Date Recorded In the past 12 months has [facility] [employer], gas, oil, or water [employer] threatened to shut off services in your [...] 08/03/2022 How often do you attend chur or bahai services? More than 4 times per year 08/03/2022 Do you belong to any clubs o r organizations such as restorationism groups, unions, fraternal or athletic groups, or [...] and heating? Not hard at all 08/03/2022 [facility] Occupat ional Health - Occupational Stress [...] your living situation today? I have a [facility] place to live 07/21/2024 Education Answer Date Recorded What is the highest level of school you have completed or the highest degree you have received? 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 - 07/30/2024 6:05 PM CDT The total vitamin-D level is 60 ng/mL (optimal range for skeletal health 30-50). Patient could discontinue her separate 25 mcg (1000 units) vitamin D3 (cholecalciferol) and recheck vitamin-D level in1 year. documented in this encounter Plan of Treatment Not on file documented as of this encounter Procedures Procedure Name Priority Date/Time Associated Diagnosis Comments 25-HYDROXYVITAMIN D2 AND D3, S Routine 07/28/2024 9:59 AM CDT Osteoporosis documented in this encounter Results * 25-Hydroxyvitamin D2 and D3 (07/28/2024 9:59 AM CDT) 25-Hydroxy D2 <4.0 ng/mL 07/30/2024 3:03 PM CDT SDSC 25-Hydroxy D3 60 ng/mL 07/30/2024 3:03 PM CDT [facility]SC 25-Hydroxy D Total 60 ng/mL 2023 3:03 PM CDT [facility] Comment: Interpretation: 51-80 ng/mL (increased risk of hypercalciuria) ----REFERENCE VALUE---- 25-HYDROXY D TOTAL (D2+D3) Optimum levels in the healthy population are 20-50. ----ADDITIONAL INFORMATION---- This test was developed and its performance characteristics determined by [facility] in a manner consistent with CLIA requirements. This test has not been cleared or approved by the U.S. Food and Drug Administration. Blood (Blood, Venous) 07/28/2024 9:59 AM CDT 07/29/2024 10:00 AM CDT us Bjorn Payan M.D. LAB BLOOD ADD-ON Final Resu lt [facility] [address] [place] [address] [facility] [address] [place] [address] [place] [address] documented in this encounter Visit Diagnoses Diagnosis Osteoporosis documented in this encounter
--- OUTSIDE RECORDS SUMMARY | 2024-08-29 15:32 | XMS_ITS ---
Author Organization [facility] Address [address] [place] [address] Care Team Providers Care Triage Registered Nurse Name Role Phone Unavailable Unavailable Unavailable Surgery Details Not on file Complications Check Surgery Details section. Procedure Estimated Blood Loss Check Surgery Details section. Procedure Findings Check Surgery Details section. Procedure Specimens Taken Check Surgery Details section.
--- OUTSIDE RECORDS SUMMARY | 2024-08-29 15:32 | XMS_ITS | Encounter Summary ---
Author Organization [facility] Address [address] [place] [address] Care Team Providers Care Journey Lineman Name Role Phone Unavailable Primary Care Provider Unavailabl e Encounter Details Date Type Department Care Team ([facility] st Contact Info) Description 07/20/2024 Orders Only Division of Endocrinology in [place], [place] [address] [place] [phone] Bjorn Payan M.D. [address] [place] [phone] Social History Tobacco Use Types Packs/Day Years Used Date Smoking Tobacco: Never Passive Smoke Exposure: Never Smokeless Tobacco: Never Alcohol Use Standard Drinks/Week Comments No 0 (1 standard drink = 0.6 oz pur e alcohol) [facility] Utilities Answer Date Recorded In the past 12 months has [facility] [employer] gas, oil, or water [employer] threatened to shut off services in your [...] How often do you attend chur or mandaeism services? More than 4 times per year 08/03/2022 Do you belong to any clubs o r organizations such as mormon groups, unions, fraternal or athletic groups, or [...] and heating? Not hard at all 08/03/2022 [facility] of Occupat ional Health - Occupational Stress [...] your living situation today? I have a [facility] place to live 07/21/2024 Education Answer Date Recorded What is the highest level of school you have completed or the highest degree you have received? 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
--- OUTSIDE RECORDS SUMMARY | 2024-08-29 15:32 | XMS_ITS | Referral Summary ---
Author Organization [facility] Address [address] [place] [address] Care Team Providers Care Underground Bolting Machine Operator Name Role Phone Unavailable Primary Care Provider Unavailabl e Source Comments Patient records contain information from all sites at [facility]. For routine questions regarding patient records, call [phone] during business hours, M-F 8:00 AM - 5:00 PM Central Time. Record requests for emergency care only can be directed to [phone] at any time.[facility] Encounters * This document contains information received from the source organization and may not represent a complete record from that organization. Date Type Department Care Team Description 07/28/2024 3:35 PM CDT Lab RST RO LMP [address] [place] [phone] Bjorn Payan M.D. Osteoporosis 07/28/2024 3:00 PM CDT Office Visit Division of Endocrinology in [place], [place] [address] [place] [phone] Bjorn Payan M.D. Osteoporosis 07/28/2024 9:30 AM CDT - 07/28/2024 10:10 AM CDT Hospital Encounter Department of Laboratory Medicine and Pathology, [facility], in [place], [place] [address] [place] [phone] Bjorn Payan M.D. Osteoporosis; Hypokalemia; Hypercalciuria Discharge Disposition: Home or Self Care 07/28/2024 10:11 AM CDT - 07/28/2024 11:59 PM CDT Hospital Encounter Department of Radiology, [facility], in [place], [place] [address] [place] [phone] Bjorn Payan M.D. Osteoporosis Discharge Disposition: Home or Self Care 07/20/2024 Orders Only Division of Endocrinology in [place], [place] [address] [place] [phone] Bjorn Payan M.D. 07/14/2024 3:15 PM CDT Clinical Communication Virtual Review in [place], [place] 200 [place] [address] Pre-visit Intake 06/30/2024 Orders Only Division of Endocrinology in [place], [place] [address] [place] [phone] Bjorn Payan M.D. Hypokalemia (Primary Dx); Hypercalciuria 06/30/2024 Clinical Communication Division of Endocrinology in [place], [place] [address] [place] [phone] Bjorn Payan M.D. from Last 3 Months Allergies Active Allergy Reactions Criticality Noted Date [...] mouth or throat as needed. Active zoledronic iuzx-zoagrbnV-z ater (Reclast) 5 mg/100 mL piggyback Infuse [...] drink = 0.6 oz pur e alcohol) [facility] Utilities Answer Date Recorded In the past 12 months has e [employer], gas, oil, or water [employer] threatened to shut off services in your [...] often do you attend chur ch or adventist services? More than 4 times per year 08/03/2022 Do you belong to any clubs o r organizations such as religion groups, unions, fraternal or athletic groups, or [...] and heating? Not hard at all 08/03/2022 [facility] [place] of Occupat ional Health - Occupational Stress [...] your living situation today? I have a [facility] place to live 07/21/2024 Education Answer Date Recorded What is the highest level of school you have completed or the highest degree you have received? 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 COMPARISON: Serial Comparisons Left Total Hip results: [...] Bone Mineral Density (BMD) analysis performed on Visual Factory[employer] with serialnumber [id number]. COMPARISON: Serial Comparisons Left Total Hip results: [...] M.D. LAB BLOOD ADD-ON Final Resu lt [facility] 200 [place] [address], [facility] 200 [place] [address] * Potassium (07/28/2024 10:01 AM CDT) Potassium, S 3.7 3.6 - 5.2 mmol/L 07/28/2024 11:15 AM CDT DTL Blood (Blood, Venous) 07/28/2024 10:01 AM CDT 07/28/2024 10:51 AM CDT us Bjorn Payan M.D. LAB BLOOD ADD-ON Final Resu lt Performing Organization Address City/[facility]/ZIP Co de Phone Number [facility] 200 [place] [address], [facility] 200 [place] [address] * Creatinine with Estimated GFR (07/28/2024 10:01 AM CDT) Creatinine 0.79 0.59 - 1.04 mg/dL 07/28/2024 11:15 AM CDT DTL Estimated GFR (eGFR) 82 >=60 mL/min/BSA 07/28/2024 11:15 AM CDT DTL Comment: Estimated GFR calculated using the 2020 CKD_EPI creatinine equation. Blood (Blood, Venous) 07/28/2024 10:01 AM CDT 07/28/2024 10:51 AM CDT us Bjorn Payan M.D. LAB BLOOD ADD-ON Final Resu lt [facility] 200 [place] [address], [facility] 200 [place] [address] * Calcium, Total (07/28/2024 10:01 AM CDT) Calcium, Total, S 9.5 8.8 - 10.2 mg/dL 07/28/2024 11:15 AM CDT DT Blood (Blood, Venous) 07/28/2024 10:01 AM CDT 07/28/2024 10:51 AM CDT us Bjorn Payan M.D. LAB BLOOD ADD-ON Final Resu lt Performing Organization Address City/[facility] Co de Phone Number [facility] 200 [place] [address], [facility] 200 [place] [address] * 25-Hydroxyvitamin D2 and D3 (07/28/2024 9:59 [...] and its performance characteristics determined by [facility] in a manner consistent with CLIA requirements. This test has not been cleared or approved by the U.S. Food and Drug Administration. Blood (Blood, Venous) 07/28/2024 9:59 AM CDT 07/29/2024 10:00 AM CDT us Bjorn Payan M.D. LAB BLOOD ADD-ON Final Resu lt [facility] [address] [place] [address] [facility] [address] [place] [address] [place] [address] from Last 3 Months Insurance MEDICARE [facility] Advance Directives For more information, please contact: [phone] Documents on File Type Date Recorded Patient Health Actuary Expl anation Advance Directives 11/09/2014 12:00 AM Sai dent document. See document viewer.
--- OUTSIDE RECORDS SUMMARY | 2024-08-29 15:32 | XMS_ITS | Clinical Summary ---
Author Organization [facility] Address [place], [place] [address] Care Team Providers Care Dowel Inserting Machine Operator Name Role Phone Manuel Briceno MD Primary [...] reflux Dizziness and giddiness Encounters Date Type Department Care Team Description 07/10/2024 4:00 PM CDT Ancillary Procedure [facility] [address] [place] [address] 07/10/2024 Travel 07/05/2024 Travel from Last 3 Months Immunizations Name Administration [...] 10 oz) F Vag Living Comments:Lewis Syndro me 990 38w 0d 3.23 kg (7 lb 2 oz) M Vag Living Last Filed Vital Signs Vital Sign Reading Time Taken Comments Blood Pressure 103/70 09/12/2021 9:07 AM CHIROPRACTIC PHYSICIAN Pulse 80 12/04/2023 2:58 PM CHIROPRACTIC PHYSICIAN Temperature 36.7 C (98.1 F) 09/15/2020 3:28 PM CHIROPRACTIC PHYSICIAN Respiratory Rate 16 09/12/2021 9:07 AM CHIROPRACTIC PHYSICIAN Oxygen Saturation 97% 12/04/2023 2:58 PM CHIROPRACTIC PHYSICIAN Inhaled Oxygen Concentration - - Weight 71.3 kg (157 lb 3.2 oz) 12/04/2023 2:58 P M CHIROPRACTIC PHYSICIAN Height 160.4 cm (5' 3.15) 09/15/2020 3:28 PM CS T Body Mass Index 27.71 09/15/2020 3:28 PM CHIROPRACTIC PHYSICIAN Plan of Treatment Health Maintenance Due Date [...] history exists COVID-19 vaccine series ( season) 2024 07/02/2023, 07/14/2022, 01/20/2022, Additional history exists Influenza for age 65+ 06/08/2024 08/08/2006 Procedures Procedure Name Priority Date/Time Associated Diagnosis Comments US RENAL AND BLADDER COMPLETE Routine 07/10/2024 4:16 PM CDT Calculus of kidney XR MAMMO BILAT SCREEN FFDM (IA) Routine 02/23/2010 3:38 PM CDT Other screening mammogram LIPID PANEL Routine 02/07/2007 7:34 AM CDT Routine Gynecological Examination from Last 3 Months or Most Recently Relevant to Health Maintenance Results * US RENAL AND BLADDER COMPLETE (07/10/2024 4:16 PM CDT) Anatomical Region Laterality Modality Abdomen, AORTA, KIDNEYS Ultrasou nd 07/11/2024 2:05 PM CDT Impressions 07/11/2024 2:05 PM CDT Stable stone in the lower pole of the right kidney. No hydronephrosis. Dictated by Zhou Lauren MD @ 07/11/2024 2:05:54 PM (Electronically Signed) Narrative 07/11/2024 2:05 PM CDT For Patients: As a result of the Cures Act, medical imaging exams and procedure reports are released immediately into your electronic medical record. You may view this report before your referring provider. If you have questions, please contact your health care provider. CLINICAL HISTORY: Calculus of kidney COMPARISON: Ultrasound 11/14/2022, CT 09/28/2022 TECHNIQUE: Maldonado scale and color Doppler images were acquired of the kidneys and urinary bladder. FINDINGS: Small echogenic stone lower pole right kidney again noted measures 5 millimeters. No hydronephrosis. The right kidney measures 10.6cm in length and the left kidney measures 11.0cm in length. The renal cortex appears of normal thickness. Normal color Doppler imaging of both kidneys. The urinary bladder appears normal. Prevoid bladder volume 253 cc. Postvoid bladder volume 13 cc. Residual volume is 5 percent. There is no evidence of bladder calculi or diverticula. Procedure Note Zhou Lauren MD - 07/11/2024 For Patients: As a result of the Cures Act, medical imagingexams and procedure reports are released immediately into your electronicmedical record. You may view this report before your referring provider.If you have questions, please contact your health care provider. CLINICAL HISTORY: Calculus of kidney COMPARISON: Ultrasound 11/14/2022, CT 09/28/2022 TECHNIQUE: Maldonado scale and color Doppler images were acquired of the kidneys andurinary bladder. FINDINGS: Small echogenic stone lower pole right kidney again noted measures 5millimeters. No hydronephrosis. The right kidney measures 10.6cm in lengthand the left kidney measures 11.0cm in length. The renal cortex appears ofnormal thickness. Normal color Doppler imaging of both kidneys. The urinary bladder appears normal. Prevoid bladder volume 253 cc.Postvoid bladder volume 13 cc. Residual volume is 5 percent. There is noevidence of bladder calculi or diverticula. IMPRESSION: Stable stone in the lower pole of the right kidney. No hydronephrosis. Dictated by Zhou Lauren MD @ 07/11/2024 2:05:54 PM (Electronically Signed) Isaiah Hunter MD US * XR MAMMO BILAT SCREEN FFDM (02/23/2010 3:38 PM CDT) Anatomical Region Laterality Modality BREASTS, Breast Left, Breast Right Bilateral Mammography Impressions 02/24/2010 9:02 AM CDT There is no radiographic evidence for malignancy. Recommend annual mammograms. A lay language report of this examination will be provided to the patient. MAMMOGRAM ASSESSMENT: ACR 1 Negative Narrative 02/24/2010 9:02 AM CDT XR MAMMO BILAT SCREEN FFDM [G0202.0] CLINICAL HISTORY: This is an asymptomatic 54 y.o. patient. INDICATION FOR EXAM: Mammogram Screening. TECHNIQUE: CC & MLO views were obtained. This digital study was evaluated with the assistance of Computer-Aided Detection. COMPARISON FILM: Yes 02/17/09 [facility] 02/12/08 [facility] FINDINGS: Mammographically, the breast tissue has scattered fibroglandular densities (approximately 25% - 50% glandular). There are no dominant masses, suspicious micro calcifications or areas of architectural distortion. Procedure Note Seun Suazo - 02/24/2010 XR MAMMO BILAT SCREEN FFDM [G0202.0] CLINICAL HISTORY: This is an asymptomatic 54 y.o. patient. INDICATION FOR EXAM: Mammogram Screening. TECHNIQUE: CC & MLO views were obtained. This digital study was evaluatedwith the assistance of Computer-Aided Detection. COMPARISON FILM: Yes 02/17/09 [facility] 02/12/08 [facility] FINDINGS: Mammographically, the breast tissue has scatteredfibroglandular [...] AM CDT 02/07/2007 7:31 AM CDT Narrative [facility] - 02/07/2007 7:37 AM CDT LIPID Canceled, ordered incorrectly by laboratory. Zeferino Tanner MD CHEMISTRY [facility] [address] [place] [address] from Last 3 Months or Most Recently Relevant to Health Maintenance Advance Directives * Full Code (Latest Code Status on File) Date Activated Date Inactivated Comments 03/06/2007 11:49 AM 03/07/2007 2:08 AM Care Teams Dowel Inserting Machine Operator Relationship Specialty Start Date End Date Manuel Briceno MD PCP - General 12/07/09
--- OUTSIDE RECORDS SUMMARY | 2024-08-29 15:32 | XMS_ITS | Continuity of Care Document ---
Author Organization [facility] Address [address] [facility] [address] [place] [address] Phone Care Team Providers Care Pan Operator Name Role Phone Renuka Londono CNP Unavailable Unavailable Allergies, Adverse Reactions, Alerts Substance Reaction Status Criticality No Known Drug Allergies Active No I nformation Medications Medication Instructions Dosage Effective Dates (start - stop) Status Comments Vitamin C 500 mg tablet - Active Citracal + D Slow Release 600 mg calcium-500 unit tablet,ext.release - Active aspirin 81 mg chewable tablet chew 1 tablet by oral route every day 81 MG - Active alendronate 70 mg tablet take 1 tablet by oral route every week in the morning, at least 30 min before first food, beverage, or medication of day 70 MG - Active omeprazole 40 mg capsule,delayed release take 1 capsule by oral route 2 times every day before a meal 40 MG - Active Aarti 180 mg tablet take [...] Pt Eval 25 Min [facility], [address] [facility] [address], [place], [place], [id number], [place] tel:[phone] [facility] No Information 0-201 [address] Grayson. [address], [place], [place], [id number], [place]. tel:[phone] Referring Provider: Alex Angel, [address], [place], [address]. tel:[phone] [facility], [address], [place], [address], [place] tel:[phone] [facility] No Information Jun- 4 Jesus Dumas. [address] [place], [facility], [place], [address]. tel:[phone] Referring Provider: Piter Grossman, [address] [place] [facility], [place], [address]. tel:[phone] [place], [facility], [address], [place], [place], [id number], [place] tel:[phone] [facility] No Information 4 Jesus Dumas. [address] [place], [facility], [place], [address]. tel:[phone] Referring Provider: Alex Angel, [address], [place], [address]. tel:[phone] OP Consult 60 Min [facility], [facility], [address], [place], [place], [id number], [place] tel:[phone] [facility] No Information 4 Jose Emerson. [address], [place], [place], [id number], [place]. tel:[phone] Referring Provider: Alex Angel, [address], [place], [address]. tel:[phone] Family History Family Member Type Diagnosis Age At Onset No Information Payers Payer name Insurance type Covered republican ID Authorvi timarcial(s) No Information Social History [...]
--- OUTSIDE RECORDS SUMMARY | 2024-08-29 15:32 | XMS_ITS | Encounter Summary ---
Author Organization [facility] Address [address] [place] [address] Care Team Providers Care Tobacco Sprayer Name Role Phone Unavailable Primary Care Provider Unavailabl e Reason for Visit * Reason Onset Date Comments Pre-visit Intake 07/14/2024 Encounter Details Date Type Department Care Team (Latest Contact Info) Description 07/14/2024 3:15 PM CDT Clinical Communication Virtual Review in [address] [phone] Pre-visit Intake Social History Tobacco Use Types Packs/Day Years [...] often do you attend chur ch or faith services? More than 4 times per year 08/03/2022 Do you belong to any clubs o r organizations such as bahai groups, unions, fraternal or athletic groups, or [...] and heating? Not hard at all 08/03/2022 [facility] of Occupat ional Health - Occupational Stress [...] place to sleep or slept in a skilled nursing (including now)? 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
--- OUTSIDE RECORDS SUMMARY | 2024-08-29 15:32 | XMS_ITS | Encounter Summary ---
Author Organization [facility] Address [address] [place] [address] Care Team Providers Care Principal Technical Architect Name Role Phone Unavailable Primary Care Provider Unavailabl e Encounter Details Date Type Department Care Team (Latest Contact Info) Description 07/28/2024 9:30 AM CDT - 07/28/2024 10:10 AM CDT Hospital Encounter Department of Laboratory Medicine and Pathology, [place], [place] [address] [place] [phone] Bjorn Payan M.D. [address] [place] [phone] Osteoporosis; Hypokalemia; Hypercalciuria Discharge Disposition: Home or Self Care Social History Tobacco Use Types Packs/Day Years Used Date Smoking Tobacco: Never Passive Smoke Exposure: Never Smokeless Tobacco: Never Alcohol Use Standard Drinks/Week Comments No 0 (1 standard drink = 0.6 oz pur e alcohol) [facility] Utilities Answer Date Recorded In the past 12 months has [employer] electric, gas, oil, or water company threatened [...] How often do you attend chur or buddhist services? More than 4 times per year 08/03/2022 Do you belong to any clubs o r organizations such as worship groups, unions, fraternal or athletic groups, or [...] and heating? Not hard at all 08/03/2022 [facility] of Occupat ional Health - [...] your living situation today? I have a [facility] place to live 07/21/2024 Education Answer Date Recorded What is the highest level of school you have completed or the highest degree you have received? 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 zoledronic [id number]-vp ter (Reclast) 5 mg/100 mL piggyback Infuse 5 mg into a venous catheter. documented as of this encounter Plan of Treatment Not on file documented as of this encounter Procedures Procedure Name Priority Date/Time Associated Diagnosis Comments CBC WITHOUT DIFFERENTIAL, B Routine 07/28/2024 10:01 AM CDT Hypokalemia Hypercalciuria POTASSIUM, S/P Routine 07/28/2024 10:01 AM CDT Hypokalemia Hypercalciuria CREATININE WITH EGFR, S/P Routine 07/28/2024 10:01 AM CDT Osteoporosis CALCIUM, TOT, S/P Routine 07/28/2024 10: 01 AM CDT Osteoporosis documented in this encounter Results * CBC without Differential [...] ADD-ON Final Resu lt Performing Organization Address City/[facility]/ZIP Co de Phone Number [facility] [address] [place], [place] [address] [place] [address] 200 [place] [address] * Potassium (07/28/2024 10:01 AM CDT) Potassium, S 3.7 3.6 - 5.2 mmol/L 07/28/2024 11:15 AM CDT DTL Blood (Blood, Venous) 07/28/2024 10:01 AM CDT 07/28/2024 10:51 AM CDT us Bjorn Payan M.D. LAB BLOOD ADD-ON Final Resu lt Performing Organization Address City/[facility]/ZIP Co de Phone Number [facility] [address] [place], [place] [address] [place] [address] 200 [place] [address] * Calcium, Total (07/28/2024 10:01 AM CDT) Calcium, Total, S 9.5 8.8 - 10.2 mg/dL 07/28/2024 11:15 AM CDT DTL Blood (Blood, Venous) 07/28/2024 10:01 AM CDT 07/28/2024 10:51 AM CDT us Bjorn Payan M.D. LAB BLOOD ADD-ON Final Resu lt [facility] [address] [place] [address], [place] DTL [facility] 200 [place] [address] * Creatinine with Estimated GFR (07/28/2024 10:01 AM CDT) Creatinine 0.79 0.59 - 1.04 mg/dL 07/28/2024 11:15 AM CDT DTL Estimated GFR (eGFR) 82 >=60 mL/min/BSA 07/28/2024 11:15 AM CDT DTL Comment: Estimated GFR calculated using the 2020 CKD_EPI creatinine equation. Blood (Blood, Venous) 07/28/2024 10:01 AM CDT 07/28/2024 10:51 AM CDT us Bjorn Payan M.D. LAB BLOOD ADD-ON Final Resu lt [facility] [address] [place] [address], [facility] [address] [place] [address] documented in this encounter Visit Diagnoses Diagnosis Osteoporosis Hypokalemia Hypercalciuria documented in this encounter
--- OUTSIDE RECORDS SUMMARY | 2024-08-29 15:32 | XMS_ITS | Encounter Summary ---
Author Organization [facility] Address [address] [place] [address] Care Team Providers Care Field Services Manager Name Role Phone Unavailable Primary Care Provider Unavailabl e Encounter Details Date Type Department Care Team (Latest Contact Info) Description 06/30/2024 Clinical Communication Division of Endocrinology in [place], [place] [address] [place] [phone] Bjorn Payan M.D. [address] [place] [phone] Social History Tobacco Use Types Packs/Day Years Used Date Smoking Tobacco: Never Passive Smoke Exposure: Never Smokeless Tobacco: Never Alcohol Use Standard Drinks/Week Comments No 0 (1 standard drink = 0.6 oz pur e alcohol) [facility] Utilities Answer Date Recorded In the past [address] [facility] [employer] gas, oil, or water [employer] threatened to shut off services in your [...] often do you attend chur ch or advent services? More than 4 times per year 08/03/2022 Do you belong to any clubs o r organizations such as rastafarian groups, unions, fraternal or athletic groups, or [...] and heating? Not hard at all 08/03/2022 [facility] of Occupat ional Health - Occupational Stress [...] your living situation today? I have a [facility] place to live 07/21/2024 Education Answer Date Recorded What is the highest level of school you have completed or the highest degree you have received? 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
--- OUTSIDE RECORDS SUMMARY | 2024-08-29 15:33 | XMS_ITS | Data Portability ---
Author Organization [facility], [id number] Address [address] [place] [phone] Assessment No assessment recorded. Plan of Treatment Reminders Order Date Submit Date Provider Last Modified By Organization Details Last Modified Time Details Appointments None recorded. Lab None recorded. Referral None recorded. Procedures None recorded. Surgeries None recorded. Imaging US, pelvis, transabdom inal + transvagin al 2019 020 janak [facility] Floor Worker [facility] [place], [address] [place], [address], 0 17:23:55 US, pelvis, transabdom inal + [facility]vagin al [facility] [place], [address], [place], [address], 0 12:32:29 Medication Orders None recorded. Patient TargetsNo targets recorded. Patient InstructionsNo instructions recorded. Reason for Referral None Reported. Results Created Date Observation Date Name Description Value Unit Range Abnormal Flag Note LastModifiedBy Organization Detail LastModifiedTime 06/01/20 20 US, trans vagin al No observ ation record ed. janak Dai [address], [place], [address], 07/15/2020 22:02:40 06/01/20 20 US, pelvi s, trans abdom inal + trans vagin al No observ ation record ed. janak [facility] Floor Worker [facility] [place] [facility] [address] [place], [address], 08/04/2020 01:10:23 Result Notes None recorded. Procedures Surgical History Date Name Laterality Status Provider Name and Address Organization Details Recorded Time 015 parathyroidectomy completed Not Available [facility] 05/13/2020 05:12:34 laparoscopy completed Not Available [facility] 05/13/2020 05:12:34 Removal of gallbladder completed Not Available [facility] 05/13/2020 05:12:34 laparotomy completed Not Available [facility] 05/13/2020 05:12:34 operative procedure on forearm completed Not Available [facility] 05/13/2020 05:12:34 tonsillectomy completed Not Available [facility] 05/13/2020 05:12:34 Imaging Results Imaging Date Name Status LastModified by Organization Details LastModified Time 06/01/2020 US, transvaginal completed amimarium Dai [address], [place], [address], 07/15/2020 22:02:40 06/01/2020 US, pelvis, transabdominal + transvaginal completed janak [facility] [employer] [facility] [address], [place], [address], 08/04/2020 01:10:23 Procedure Notes None recorded. Medical Equipment None Reported. Allergies Allergen ID Allergen Name Allergen Category Reaction Reaction Severity Criticality Documentation Date Start Date Code Code System Note Provider Name and Address Organization Details Recorded Time 03347 Hayfever medicatio n Not available Not available Not available 05/13/2020 Not Available [facility] 0 05:08:48 48548 ALLERGENI C EXTRACT, RAGWEED STOCK POLLEN medicatio n Not available Not available Not available 05/13/2020 85167 4 RxNorm Not Available [facility] 0 05:08:48 Vitals None Recorded Social History Question Answer Notes LastModified by Organizat ion Details LastModified Time Tobacco Smoking Status Never Smoker Tobacco *Status: Never Not Available [facility] 05/17/2020 10:04:23 Do You Have An Advance Directive? Yes Does Have A Health Care Directive Information not available 05/17/2020 What Is Your Level Of Caffeine Consumption? Moderate Caffeine *Status: Current Every Day Information not available 05/17/2020 History Of Domestic Violence No Denies Any History Of Domestic Violence [place] [phone] Information not available 05/17/2020 Marital Status [place] [phone] Information not available 05/17/2020 Performs Monthly Self-breast Exam? Yes Does Perform Monthly Breast Exams [place] [phone] Information not available 05/17/2020 Are You Sexually Active? Yes Currently Sexually Active [place] [phone] Information not available 05/17/2020 Sex: Unknown Functional Status Question Answer Note LastModified by Organizat ion Details LastModified Time What is your exercise level? Occasional Active but no formal exercise [place] [phone] Information not available 05/17/2020 Mental Status None recorded. Family History Relationship Description Onset Age of this Age Resolved Age Notes LastModified by Organization Details LastModified Time Brother Family history of Cardiovascul ar disease Family Histor y of Hypert ension Not available 05/13/2020 05:38:19 Sister Family history of breast cancer 42 Family Histor y of Cancer ; Breast Not available 05/13/2020 05:38:20 Sister Family history of osteoporosis Family Histor y of Osteop orosis Not available 05/13/2020 05:38:21 Father Family history of Cardiovascul ar disease Family Histor y of Hypert ension Not available 05/13/2020 05:38:20 Mother Family history of Cardiovascul ar disease Family Histor y of Hypert ension Not available 05/13/2020 05:38:20 Mother Family history of osteoporosis Family Histor y of Osteop orosis Not available 05/13/2020 05:38:21 Medical History Condition Response Endocrinology- Osteoporosis Urology- Kidney or Bladder Problems GI- Reflux/Ulcers Gynecological HistoryNo gynecological history recorded. Obstetrics History GPAL:G 2 P 2 0 0 2 Type Value Multiple Births 0 Full Term 2 Induced 0 Spontaneous 0 Premature 0 Living 2 Ectopics 0 Total 2 Past Encounters Encounter ID Performer Location Encounter Start Date Encounter Closed Date Diagnosis/Indication Diagnosis SNOMED-CT Code Diagnosis ICD10 Code [id number] GUANAKO HUNTLEY MD [id number] [address] [phone] 06/01/2020 15:48:52 06/01/2020 17:33:47 Pain in pelvis 82681259 R10.2 Health Concerns Section Related Observation LastModified by Organization Detai ls LastModified Time None Recorded Concern Status LastModified by Organization Details LastModified Time None Recorded Advance Directives Directive Y: Does have a Health Care D irective Payers Encounter Date Sequence Insurance Name Policy Number Policy Olson Covered Member ID Olson Member ID Guarantor Name 06/01/2020 1 [employer] [id number] Cleopatra Parrish [id number] Cleopatra Parrish OBGyn Episode No OBEpisode recorded.
--- OUTSIDE RECORDS SUMMARY | 2024-08-29 15:33 | XMS_ITS | Continuity of Care Document ---
Author Organization [place] [facility], [facility] Address [address] [place] [address] Assessment Encounter Date Assessment Date Assessment LastModified by Organization Details LastModified Time 07/15/2024 07/15/2024 67 year old female with a history of nephrolithias is. [email or web address] Not available 07/13/2024 01:35:33 Plan of Treatment Reminders Order Date Submit Date Provider Last Modified By Organization Details Last Modified Time Details Appointments None recorded. Lab urinalysis, dipstick 2023 [facility], [address], [address], [place], [address], 16:27:05 urinalysis, microscopic [facility] [facility], [address], [address], [place], [address], 14:56:41 Referral None recorded. Procedures None recorded. Surgeries None recorded. Imaging US, kidney - h/o kidney stone 2023 025 [email or web address] [facility], [address], [place], [address], 15:17:08 Medication Orders None recorded. Patient TargetsNo targets recorded. Patient Instructions Encounter Date Encounter Id Patient Instructions Last Modified By Organization Details Last Modified Time 07/15/2024 [id number] Kidney stone -Mo st recent imaging with stable 5mm R lower pole stone. -She currently on chlorthalidone through PCP -She remains asymptomatic. -We will continue surveillance with a repeat renal ultrasound in 1 year. [email or web address] Not available 07/15/2024 14:57:13 Reason for Referral None Reported. Results Created Date Observation Date Name Description Value Unit Range Abnormal Flag Note LastModifiedBy Organization Detail LastModifiedTime 07/14/20 24 07/10/2024 Tray TOWNSEND observ ation record ed. KELSI Chopra [place] [address], [place], [address], 07/14/2024 13:12:18 Result Notes None recorded. Problems Name Problem SNOMED Code Status Onset Date Resolution Date Notes Provider Name and Address Organization Details Recorded Time Kidney stone 20921873 [facility] 12:22:19 Gastroesophage al reflux disease 190967886 [facility] 12:23:21 Hyperthyroidis m 80766000 [facility] 12:24:00 Osteoporosis 92420282 [facility] 12:24:18 Problem Notes None recorded. Procedures Surgical History Date Name Laterality Status Provider Name and Address Organization Details Recorded Time 02/10/20 12 [facility] 09:09:32 11/14/19 12 Insert bladder catheter completed Not Available Health Note 09/15/2022 18:03:47 Removal of gallbladder completed Not Available Health Note 09/15/2022 18:03:47 Excise epiphyseal bar completed Not Available Health Note 09/15/2022 18:03:47 Laparoscopic cholecystectomy completed Not Available Health Note 09/15/2022 18:03:47 Diagnostic colonoscopy completed Not Available Health Note 07/12/2024 12:43:50 Imaging Results None recorded. Procedure Notes None recorded. Medical Equipment None Reported. Allergies No known drug allergies Medications Name Sig Start Date Stop Date Status Note LastModified by Organization Details LastModified Time Claritin 10 mg tablet 10 mg 1/day active Not Available Not Available No t Available sucralfat e 1 gram tablet TAKE ONE TABLET BY MOUTH FOUR TIMES A DAY 07/15 completed HN: Patient reports no longer taking Not Available Not Available Not Available prednison e 20 mg tablet TAKE 1 TABLET BY MOUTH TWICE DAILY 07/15 completed Not Available Not Available Not Available chlorthal idone 25 mg tablet TAKE 1 TABLET BY MOUTH TWICE DAILY active Not Available Not Available No t Available omeprazol e 40 mg capsule,d elayed release TAKE 1 CAPSULE BY MOUTH TWICE DAILY active Not Available Not Available No t Available prednisol one acetate 1 % eye drops,bernice pension SHAKE LIQUID AND INSTILL 1 DROP IN BOTH EYES TWICE DAILY FOR 2 WEEKS 07/15 completed Not Available Not Available Not Available lorazepam 0.5 mg tablet TAKE 1 TABLET BY MOUTH AT BEDTIME NEEDED FOR ANXIETY active Not Available Not Available No t Available triamcino lone acetonide 0.1 % dental paste USE DIRECTED active Not Available Not Available No t Available tamsulosi n 0.4 mg capsule Take 1 capsule every day by oral route. 07/15 completed HN: Patient reports no longer taking Not Available Not Available Not Available erythromy juju 5 mg/gram (0.5 %) eye ointment APPLY TOPICALL Y TO AFFECTED AREA LOWER LEFT EYELID EVERY NIGHT FOR 1 WEEK. 07/15 completed HN: Patient reports no longer taking Not Available Not Available Not Available sertralin e 50 mg tablet TAKE ONE TABLET BY MOUTH EVERY DAY 07/15 completed HN: Patient reports no longer taking Not Available Not Available Not Available omeprazol e 40mg 2/day 08/09 completed Not Available Not Available Not Available Tums 1000 1/day active Not Available Not Available No t Available Vitamin D3 1000iu 1/day active Not Available Not Available No t Available Miralax 17 g 1/day active Not Available Not Available No t Available Paxlovid 300 mg (150 mg x 2)-100 mg tablets in a dose pack TK 2 NIRMATRE LVIR TS AND 1 RITONAVI R T TOGETHER PO BID FOR 5 DAYS BID FOR 5 DAYS 08/09 completed Not Available Not Available Not Available Vitals Date Recorded Body mass index (BMI) Body weight Body height Provider Name and Address Organization Details Last Updated DateTime 07/15/2024 25.7 kg/m2 97962.88748 5346 g 162.56 cm Not Available Health Note 07/15/2024 08:12:25 Social History Question Answer Notes LastModified by Organizat ion Details LastModified Time Tobacco Smoking Status Never Smoker Not Available Health Note 07/12/2024 12:43:50 What Is Your Level Of Alcohol Consumption? None Information not available 07/15/2024 What Is Your Level Of Caffeine Consumption? None [email or web address] Information not available 07/12/2024 How Much Tobacco Do You Chew? None [email or web address] Information not available 07/12/2024 Do You Or Have You Ever Used E-cigarettes Or Vape? Never Used Electronic Cigarettes [email or web address] Information not available 07/12/2024 Race White [email or web address] Information n ot available 03/18/2020 Number Of Pregnancies 2 [email or web address] Information not available 07/12/2024 Number Of Vaginal Deliveries 2 [email or web address] Information not available 07/12/2024 Number Of Caesarean Sections 0 [email or web address] Information not available 07/12/2024 Could You Be ? No [email or web address] Information not available 07/12/2024 Marital Status [email or web address] Informati on not available 03/18/2020 What Was The Date Of Your Most Recent Tobacco Screening? 07/15/2024 [email or web address] Information not available 07/12/2024 What Is Your Relationship Status? [email or web address] Information not available 07/12/2024 Are You Sexually Active? Yes [email or web address] Information not available 07/12/2024 Do You Or Have You Ever Used Smokeless Tobacco? Never Used Smokeless Tobacco [email or web address] Information not available 07/12/2024 Do You Use Any Illicit Or Recreational Drugs? No [email or web address] Information not available 07/12/2024 Has Tobacco Cessation Counseling Been Provided? No Information not available 07/17/2023 Do You Or Have You Ever Used Any Other Forms Of Tobacco Or Nicotine? No Information not available 07/17/2023 How Many Days In The Past Year Have You Consumed 4 Or More Drinks? 0 [email or web address] Information no t available 07/12/2024 Sex: Unknown Functional Status None recorded. Mental Status None recorded. Family History Nothing Reported Notes:Hypercholesterolemia:B rother Cancer, breast:Sister Hypercholesterolemia:Father Hypertension:Father Hypertension:Mother Heart disease:Grandmother Hypertension:Brother Kidney stones:Brother Heart disease:Grandfather Medical History Condition Response Sexually Transmitted Infection N Diabetes N Bleeding Disorder N High Blood Pressure N Kidney Stones Y Cancer N Lung Disease N Depression N High Cholesterol N GERD/Acid Reflux Y Heart Disease N Gynecological HistoryNo gynecological history recorded. Obstetrics History GPAL:G 0 P 0 0 0 0 Immunizations Vaccine Type Date Status Provider Name and Address Organization Details Recorded Time influenza, unspecified formulation 07/08/2023 completed Not Available Health Note 07/12/2024 12:43:54 SARS-COV-2 (COVID-19) vaccine, UNSPECIFIED 07/08/2023 completed Not Available Health Note 07/12/2024 12:43:54 zoster live 09/22/2020 completed Not Available Health Note 1 12:43:54 pneumococcal, unspecified formulation 01/20/2022 completed Not Available Health Note 07/12/2024 12:43:54 pneumococcal, unspecified formulation 01/20/2022 completed Rubens Meath null, [facility] 07/17/2023 16:11:29 influenza, unspecified formulation 07/14/2022 completed Rubens Meath null, [facility] 07/17/2023 16:11:29 SARS-COV-2 (COVID-19) vaccine, UNSPECIFIED 07/14/2022 completed Rubens Meath null, [facility] 07/17/2023 16:11:29 Influenza, split virus, quadrivalent, preservative 06/21/2020 completed Rubens Meath null, [facility] 07/17/2023 16:11:29 Influenza, split virus, quadrivalent, preservative 07/04/2018 completed Rubens Meath null, [facility] 07/17/2023 16:11:29 Influenza, split virus, quadrivalent, preservative 07/05/2015 completed Rubens Meath null, [facility] 07/17/2023 16:11:29 Influenza, split virus, quadrivalent, preservative 07/10/2019 completed Rubens Meath null, [facility] 07/17/2023 16:11:29 Influenza, MDCK, quadrivalent, preservative 06/30/2021 completed Rubens Meath null, [facility] 07/17/2023 16:11:29 zoster recombinant 07/22/2020 completed Rubens Meath null, [facility] 07/17/2023 16:11:29 zoster recombinant 09/21/2020 completed Rubens Meath null, [facility] 07/17/2023 16:11:29 Influenza, high-dose, quadrivalent, PF 07/14/2022 completed Rubens Meath null, [facility] 07/17/2023 16:11:29 Influenza, adjuvanted, quadrivalent, PF 06/28/2023 completed Rubens Meath null, [facility] 07/17/2023 16:11:29 COVID-19, mRNA, LNP-S, PF, 100 mcg/0.5mL dose or 50 mcg/0.25mL dose 11/03/2020 completed Rubens Meath null, [facility] 07/17/2023 16:11:29 COVID-19, mRNA, LNP-S, PF, 100 mcg/0.5mL dose or 50 mcg/0.25mL dose 12/01/2020 completed Rubens Meath null, [facility] 07/17/2023 16:11:29 COVID-19, mRNA, LNP-S, PF, 100 mcg/0.5mL dose or 50 mcg/0.25mL dose 01/20/2022 completed Rubens Meath null, [facility] 07/17/2023 16:11:29 COVID-19, mRNA, LNP-S, PF, 100 mcg/0.5mL dose or 50 mcg/0.25mL dose 09/05/2021 completed Rubens Meath null, [facility] 07/17/2023 16:11:29 COVID-19, mRNA, LNP-S, bivalent, PF, 50 mcg/0.5 mL or 25mcg/0.25 mL dose 07/14/2022 completed Rubens Meath null, [facility] 07/17/2023 16:11:29 RSV, bivalent, protein subunit RSVpreF, diluent reconstituted, 0.5 mL, PF 06/28/2023 completed Rubens Meath null, [facility] 07/17/2023 16:11:29 COVID-19, mRNA, LNP-S, PF, 50 mcg/0.5 mL 07/02/2023 completed Rubens Meath null, [facility] 07/17/2023 16:11:29 DT (pediatric) 07/27/1985 completed Rubens Meath null, [facility] 07/17/2023 16:11:29 Tdap 01/25/2016 completed Rubens Meath null, [facility] 07/17/2023 16:11:29 Influenza, high-dose, trivalent, PF 07/08/2013 completed Rubens Meath null, [facility] 07/17/2023 16:11:29 Influenza, split virus, trivalent, preservative 07/21/2008 completed Rubens Meath null, [facility] 07/17/2023 16:11:29 Influenza, split virus, trivalent, preservative 07/24/2012 completed Rubens Meath null, [facility] 07/17/2023 16:11:29 Influenza, split virus, trivalent, preservative 07/27/2010 completed Rubens Meath null, [facility] 07/17/2023 16:11:29 Influenza, split virus, trivalent, preservative 08/30/2005 completed Rubens Meath null, [facility] 07/17/2023 16:11:29 Influenza, split virus, trivalent, PF 06/30/2009 completed Rubens Meath null, [facility] 07/17/2023 16:11:29 Td (adult), 5 Lf tetanus toxoid, preservative free, adsorbed 10/08/2004 completed Rubens Meath null, [facility] 07/17/2023 16:11:29 typhoid, ViCPs 09/21/2016 completed Rubens Meath null, [facility] 07/17/2023 16:11:29 Influenza, split virus, quadrivalent, PF 07/09/2014 completed Rubens Meath null, [facility] 07/17/2023 16:11:29 Influenza, split virus, quadrivalent, PF 07/20/2017 completed Rubens rice [facility] 07/17/2023 16:11:29 Hep A-Hep B 10/23/2016 completed Rubens rice [facility] 07/17/2023 16:11:29 Hep A-Hep B 09/21/2016 completed Rubens rice [facility] 07/17/2023 16:11:29 Past Encounters Encounter ID Performer Location Encounter Start Date Encounter Closed Date Diagnosis/Indication Diagnosis SNOMED-CT Code Diagnosis ICD10 Code [id number] Cassie Bautista PA-C [facility] [address] [place] [address] 07/15/2024 08:11:57 07/15/2024 15:17:08 Kidney stone 54262663 N20.0 Health Concerns Section Related Observation LastModified by Organization Detai ls LastModified Time None Recorded Concern Status LastModified by Organization Details LastModified Time None Recorded Payers Encounter Date Sequence Insurance Name Policy Number Policy Olson Covered Member ID Olson Member ID Guarantor Name 07/15/2024 1 MEDICARE B-[place]: [facility] Sushil Parrish [id number] Cleopatra Parrish Notes Date Note Type Note Provider Name and Address Organization Details Recorded Time 4 text/html This is a 67 year old female who is here for the evaluation and management of nephrolithiasis. She is long-time stone former.She has a history of hyperparathyroidism for which she underwent parathyroidectomy.She has a history of hypercalciuria for which she is taking chlorthalidone 25 mg daily through PCP.Her imaging including a CT of the abdomen and pelvis without intravenous contrast on 09/08/2022 which revealed punctate left sided stones, a 5 mm right lower pole stone, and additional small 1-3 mm non-obstructing right sided stones.She underwent a surveillance renal ultrasound on 07/10/24 which showed a stable sable 5mm R lower pole stoneShe underwent a follow up 24 hour urine collection at the [facility] which showed a urine volume of 2.6 liters and was otherwise unremarkable. Patient denies flank pain, blood in urine or flank pain Cassie Bautista PA-C [address] [facility],[address], [place], [address], [facility] 07/15/2024 14:58:20 OBGyn Episode No OBEpisode recorded.
== END 2024-08-29 15:28 | disposition home or self-care (01) ==
LOC: MAMMO 15:28
PROVIDERS: PCP Internal Medicine; Visit Provider Internal Medicine
DX: Z12.31 Encounter for screening mammogram for malignant neoplasm of breast (principal)
CPT/HCPCS: 77063; 77067

== ENCOUNTER 2024-09-24 13:41 | Outpatient (CLI) | payer MEDICARE, OTHER, SELFPAY | END 2024-09-24 13:42 | disposition home or self-care (01) | PROVIDERS: PCP Internal Medicine; Visit Provider Internal Medicine | DX: R53.1 Weakness (principal) | CPT/HCPCS: 80053; 82550; 83970; 86038; 86200 ==

== ENCOUNTER 2025-03-18 13:31 | Outpatient (CLI) | payer MEDICARE, OTHER, SELFPAY | END 2025-03-18 13:32 | disposition home or self-care (01) | PROVIDERS: PCP Internal Medicine; Visit Provider Internal Medicine | DX: R00.2 Palpitations (principal); R10.10 Upper abdominal pain, unspecified; R53.83 Other fatigue | CPT/HCPCS: 80048; 82550 ==

== ENCOUNTER 2025-04-21 12:44 | Outpatient (CLI) | payer MEDICARE, OTHER, SELFPAY ==
--- NOTE | 2025-04-21 13:00 | CRLHL7_ITS ---
For Patients: As a result of the Cures Act, medical imaging exams and procedure reports are released immediately into your electronic medical record. You may view this report before your referring provider. If you have questions, please contact your health care provider. Indication: CHRONIC SINUSITIS. MARSH Technique: Performed without IV contrast Comparison: None available Findings: Frontal sinuses: Clear. Ethmoid sinuses: Clear. Maxillary sinuses: Clear. The maxillary sinus drainage pathways are patent on both sides. Sphenoid sinuses: Clear, including both sphenoethmoidal recesses. Nasal Cavity: Rightward curvature of the nasal septum with right-sided nasal septal spur. Dale bullosa in both middle turbinates, left greater than right. No TMJ abnormalities identified. The visualized portions of the orbits, intracranial contents and upper soft tissue neck are grossly negative. Impression: 1. Clear sinuses. 2. Nasal septal curvature with spur formation and bilateral dale bullosa in the middle turbinates. Please note that all CT scans at this facility use dose modulation, iterative reconstruction, and/or weight-based dosing when appropriate to reduce radiation dose to as low as reasonably achievable. Dictated by Zhou Lauren MD @ 04/21/2025 3:35:09 PM (Electronically Signed)
== END 2025-04-21 12:45 | disposition home or self-care (01) ==
LOC: CT 12:45
PROVIDERS: PCP Internal Medicine; Visit Provider Otolaryngology
DX: J32.9 Chronic sinusitis, unspecified (principal); J34.2 Deviated nasal septum; R51.9 Headache, unspecified
CPT/HCPCS: 70486

== ENCOUNTER 2025-05-26 11:43 | Outpatient (CLI) | payer MEDICARE, OTHER, SELFPAY ==
--- NOTE | 2025-07-14 12:23 | W.PM.SLEEP ---
Sleep Study Details Details Interpreting Provider: Chidi Date of Sleep Study: 05/26/25 Sleep Study Details: STUDY TYPE:? Home unattended ? BMI:? 25.06 ORDERING PROVIDER:El Murillo INDICATION:? Concerned about sleep apnea ? SLEEP SUMMARY:? 399.5 minutes monitored RESPIRATORY SUMMARY:? AHI 9.5 per CMS guideline, 11.6 per rule 1A Low oxygen 84 7.2% of study oxygen less than 90% Snoring 100% PERIODIC LIMB MOVEMENTS OF SLEEP:? Not recorded CARDIAC:? Range 51-98, mean 62.1 beats per minute IMPRESSION:? Mild obstructive sleep apnea with significant hypoxemia RECOMMENDATION: Treatment options include CPAP or dental appliance.
== END 2025-05-26 11:44 | disposition home or self-care (01) ==
LOC: SLEEP 11:45
PROVIDERS: PCP Internal Medicine; Visit Provider Otolaryngology
DX: G47.33 Obstructive sleep apnea (adult) (pediatric) (principal)
CPT/HCPCS: 95806

== ENCOUNTER 2025-08-26 12:51 | Outpatient (CLI) | payer MEDICARE, OTHER, SELFPAY ==
--- NOTE | 2025-08-26 13:00 | CRLHL7_ITS ---
For Patients: As a result of the 21st Century Cures Act, medical imaging exams and procedure reports are released immediately into your electronic medical record. You may view this report before your referring provider. If you have questions, please contact your health care provider. INDICATION: History of kidney stones. TECHNIQUE: CT abdomen and pelvis without IV contrast. COMPARISON: Renal ultrasound 07/02/2025, CT abdomen and pelvis 08/07/2021. FINDINGS: Evaluation of the solid organs is limited without IV contrast Lower chest: No pulmonary infiltrate, pleural effusion, or pneumothorax. Base of the heart, incompletely imaged distal thoracic esophagus, and incompletely imaged descending thoracic aorta are normal. Liver: No worrisome hepatic lesion. Subcentimeter hypodense lesions in the right hepatic lobe are too small to characterize but are statistically simple cysts and are stable since 08/07/2021. Non-cirrhotic morphology. Gallbladder and bile ducts: No intrahepatic or extrahepatic biliary duct dilatation. Gallbladder is surgically absent. Pancreas: No focal masses. No pancreatic duct dilatation. No peripancreatic inflammation. Spleen: Normal in size. No masses. Adrenal glands: Within normal limits. Kidneys: 3 nonobstructing right renal calculi, largest in the right kidney inferior pole measures 0.6 cm (series 4, image 76) no hydronephrosis or hydroureter. No solid mass lesions. GI tract: Stable postsurgical changes of the sigmoid colon. No abnormal wall thickening or visualized mass. No finding to suggest small or large bowel obstruction. Normal appendix. Vasculature: Mild aortoiliac atherosclerosis. No abdominal aortic aneurysm. Lymph nodes: No lymphadenopathy. Peritoneum/Retroperitoneum: No free air or significant free fluid. Pelvic organs/Bladder: 3.9 x 3.2 x 3.1 cm left adnexal fluid density cystic lesion (series 2, image 112). Normal right adnexa. Normal uterus and urinary bladder. Bones: No acute fractures. No worrisome osseous lesions. Moderate degenerative changes of the lumbar spine. Soft tissues: No abdominal wall hernia. No subcutaneous or intramuscular collection or mass. IMPRESSION: 1. Subcentimeter nonobstructing right renal calculi, largest in the inferior pole measures 0.6 cm. 2. Incidental 3.9 cm left adnexal fluid density cystic lesion. Recommend pelvic ultrasound for better assessment given patient age. Please note that all CT scans at this facility use dose modulation, iterative reconstruction, and/or weight-based dosing when appropriate to reduce radiation dose to as low as reasonably achievable. Dictated by Edgar rOnelas MD @ 08/26/2025 3:43:29 PM (Electronically Signed)
== END 2025-08-26 12:52 | disposition home or self-care (01) ==
LOC: CT 12:53
PROVIDERS: PCP Internal Medicine; Visit Provider Student in an Organized Health Care Education/Training Program
DX: N20.0 Calculus of kidney (principal); N83.202 Unspecified ovarian cyst, left side
CPT/HCPCS: 74176

== ENCOUNTER 2025-09-21 15:05 | Outpatient (CLI) | payer MEDICARE, OTHER, SELFPAY ==
--- NOTE | 2025-09-21 15:20 | CRLHL7_ITS ---
For Patients: As a result of the Century Cures Act, medical imaging exams and procedure reports are released immediately into your electronic medical record. You may view this report before your referring provider. If you have questions, please contact your health care provider. INDICATION: BILATERAL SCREENING MAMMOGRAM, ASYMPTOMATIC 70 Y/O FEMALE COMPARISON: 08/29/2024, 08/28/2023, 07/18/2022 TECHNIQUE: Digital mammogram in CC and MLO projections including computer-aided detection (CAD) and tomosynthesis. BREAST COMPOSITION: There are scattered areas of fibroglandular density. FINDINGS: No suspicious findings. ASSESSMENT: BI-RADS 1 Negative RECOMMENDATION: Annual screening mammogram. A lay language report of this examination will be provided to the patient. Dictated by: Zhou Lauren MD @ 09/22/2025 08:37:10 (Electronically Signed)
== END 2025-09-21 15:06 | disposition home or self-care (01) ==
LOC: MAMMO 15:05
PROVIDERS: PCP Internal Medicine; Visit Provider Internal Medicine
DX: Z12.31 Encounter for screening mammogram for malignant neoplasm of breast (principal)
CPT/HCPCS: 77063; 77067

== ENCOUNTER 2025-09-23 15:47 | Outpatient (CLI) | payer MEDICARE, OTHER, SELFPAY ==
--- NOTE | 2025-09-23 16:00 | CRLHL7_ITS ---
For Patients: As a result of the Century Cures Act, medical imaging exams and procedure reports are released immediately into your electronic medical record. You may view this report before your referring provider. If you have questions, please contact your health care provider. CLINICAL HISTORY: Left adnexal cyst COMPARISON: CT 08/26/2025 TECHNIQUE: 2D davison-scale and color Doppler images were acquired of the pelvis using a transvaginal approach. FINDINGS: On transvaginal imaging, the myometrium has a normal uniform echotexture. The uterus measures 5.0 x 1.6 x 3.2 cm. The endometrial lining appears normal and measures 2 mm in thickness. The left ovary measures 4.7 x 3.6 x 4.3 cm in size and the right ovary is obscured by bowel gas. The left ovary demonstrates normal arterial and venous blood flow on color Doppler analysis. There are no suspicious fluid collections within the cul-de-sac. There is a simple circumscribed left ovarian cyst which measures 4.7 x 3.6 x 4.3 cm. IMPRESSION: Simple left ovarian cyst measures 4.7 cm. Dictated by Zhou Lauren MD @ 09/24/2025 7:55:21 AM (Electronically Signed)
== END 2025-09-23 15:48 | disposition home or self-care (01) ==
LOC: US 15:48
PROVIDERS: PCP Internal Medicine; Visit Provider Internal Medicine
DX: N83.202 Unspecified ovarian cyst, left side (principal)
CPT/HCPCS: 76830